=== PATIENT | female | born 1950 | race Caucasian/White ===

== ENCOUNTER 2017-12-26 17:47 | Observation (INO) ==
--- NOTE | 2017-12-26 18:02 | Emergency Department Note ---
Disposition Clinical Impression: Weakness Altered mental status Qualifiers: Altered mental status type: disorientation Qualified Code(s): R41.0 - Disorientation, unspecified Fall Qualifiers: Encounter type: initial encounter Qualified Code(s): W19.XXXA - Unspecified fall, initial encounter Head contusion Qualifiers: Encounter type: initial encounter Contusion of head detail: scalp Qualified Code(s): S00.03XA - Contusion of scalp, initial encounter Fever Qualifiers: Fever type: unspecified Qualified Code(s): R50.9 - Fever, unspecified Disposition: Admitted As Inpatient Condition: Fair Time of Disposition: 20:16 Fall HPI - General Chief Complaint: ED Altered Mental Status Stated Complaint: AMS Time Seen by Provider: 12/26/17 17:57 Source: patient, EMS Mode of arrival: EMS Limitations: altered mental status Nursing Notes Reviewed: Yes Vital Signs Reviewed: Yes - History of Present Illness HPI Narrative: Patient is a 67-year-old female who presents to air and see ED via EMS with concern for fall. Patient has fallen multiple times over the last several days and twice today. States she had some dizziness and chest pain prior to falling. Denies any difficulty breathing, abdominal pain, problems with urination or bowel movements. Patient does seem a little slow to respond and I am not sure if she understands everything I am asking her. She is able to tell me her name but does not know the year or location. We are waiting her family member to come in. Patient is on daily aspirin. Pt Subjective Complaint: fall Onset (ago): Just THREAD SINGER Fall From: wheelchair Fall Witnessed: yes Place Fall Occurred: home Loss of Consciousness: unsure Prolonged Down Time?: unclear Symptoms Prior to Fall: dizziness Context: history of frequent falls Location of injury: head Associated symptoms (after fall): Reports: chest pain, lightheaded - Related Data Home Medications Medication Instructions Recorded Confirmed Amlodipine Besylate/Benazepril 1 cap PO DAILY 09/09/16 11/25/16 [Lotrel 5-10 mg Capsule] Aspirin 81 mg PO DAILY 09/09/16 11/25/16 BuPROPion SR (12 HR) [Wellbutrin 150 mg PO BID 09/09/16 11/25/16 SR] Carbidopa/Levodopa 25/100 [Sinemet 1 tab PO QID 09/09/16 11/25/16 25/100] Gabapentin [Neurontin] 100 mg PO TID 09/09/16 11/25/16 Gabapentin [Neurontin] 600 mg PO TID 09/09/16 11/25/16 LORazepam [Ativan] 0.5 mg PO TID PRN 09/09/16 11/25/16 Loperamide [Imodium] 2 mg PO 8XD PRN 09/09/16 11/25/16 Omeprazole [PriLOSEC] 40 mg PO DAILY 09/09/16 11/25/16 Ondansetron HCl [Zofran] 4 mg PO Q6H PRN 09/09/16 11/25/16 Oxycodone HCl [Oxycontin] 40 mg PO Q6H 09/09/16 11/25/16 Prochlorperazine Maleate 10 mg PO Q8HR PRN 09/09/16 11/25/16 [Compazine] Promethazine HCl 12.5 mg PO Q6H PRN 09/09/16 11/25/16 Sertraline [Zoloft] 100 mg PO DAILY 09/09/16 11/25/16 Simvastatin [Zocor] 20 mg PO HS 09/09/16 11/25/16 Previous Rx's Medication Instructions Recorded Ibuprofen [Motrin] 600 mg PO Q8HR PRN #15 tab 10/30/16 Allergies Allergy/AdvReac Type Severity Reaction Status Date / Time No Known Allergies Allergy Verified 12/26/17 17:59 Limitations: ROS unobtainable due to patients medical condition Fall PMH - Past Medical History Medical history: Reports: hypertension Surgical history: Reports: cholecystectomy Psychiatric history: Reports: depression - Social History Smoking Status: 2nd Hand Smoke Exposure Alcohol use: Reports: none Drug use: Reports: none Physical Exam - General Limitations: altered mental status General appearance: alert - Head Head exam: other (Frontal contusion to the left forehead) - Eye Eye exam: Present: PERRL, EOMI - ENT ENT exam: normal exam, normal oropharynx, mucous membranes moist - Neck Neck exam: Present: normal inspection, full ROM, trachea midline - Chest Chest inspection: Present: normal inspection, symmetric chest wall rise - Respiratory Respiratory exam: Present: normal lung sounds bilaterally - Cardiovascular Cardiovascular exam: Present: regular rate, normal rhythm, normal heart sounds - Abdominal Exam Abdominal exam: Present: soft, Non-Tender. Absent: tenderness, distention, guarding, rebound, rigidity - Extremities Exam Extremities exam: Present: normal inspection, full ROM. Absent: tenderness, pedal edema - Neurological Exam Neurological exam: Present: alert. Absent: motor sensory deficit - Expanded Neurological Exam Patient oriented to: Present: person Coma Scale Eye Opening: Spontaneous Coma Scale Motor Response: Obeys Commands Coma Scale Verbal Response: Confused Coma Scale Total: 14 - Psychiatric Psychiatric exam: Present: normal affect, normal mood - Skin Skin exam: Present: warm, dry, intact, normal color Course Course Narrative: Patient seen and examined. Multiple falls. Does have a head contusion. Due to her altered mentation and fall injury, concern for possible intracranial injury. ET of the head ordered. We will also get a CT C/T/L spine with this as well as CT chest, abdomen and pelvis to evaluate for signs of injury or infection. Patient does have a temperature here of 102. We will initiate antibiotics bank and Zosyn. Altered mental status workup initiated. - Reevaluation(s) Reevaluation #1: Patient's lab work is appears unremarkable. As of now, the fever is of an unknown source. Blood cultures were also ordered. We will admit for concern for the multiple falls her generalized weakness and fever of unknown source. I discussed with the hospitalist who has accepted patient for admission. Upon the patient getting admitted, was found that patient is on [facility]. It turns out that hospice was the one who actually called EMS to begin with. We did discuss with the patient and family members of the possibility that if patient gets admitted, she may have to reapply for hospice. They understand and would still like her to be admitted. Time: 20:15 Vital Signs O2 Sat by Pulse Oximetry 95 12/26/17 18:07 Temperature 99.8 F H 12/26/17 21:24 Pulse Rate 63 12/26/17 21:24 Respiratory Rate 16 12/26/17 21:24 Blood Pressure 134/53 12/26/17 21:24 O2 Sat by Pulse Oximetry 95 12/26/17 21:24 Oxygen Delivery Oxygen Delivery Room Air Fall - Medical Records Medical records reviewed: Yes I reviewed the patient's medical records. - Lab Data Lab results reviewed: Yes I reviewed the patient's lab results. Result diagrams: 12/26/17 19:01 12/26/17 19:01 Lab Results 12/26/17 12/26/17 12/26/17 Range/Units 18:29 18:29 19:01 WBC 8.1 (4.3-11.1) K/mcL RBC 3.59 L (3.82-4.97) M/mcL Hgb 9.9 L (11.5-15.4) g/dL Hct 30.3 L (35.3-44.9) % MCV 84.4 (83.0-100.0) fL MCH 27.6 L (28.0-33.3) pg MCHC 32.7 (31.6-35.5) g/dL RDW 13.8 (11.5-14.5) % Plt Count 106 L (140-400) K/mcL MPV 10.0 (9.4-12.4) fL Immature Gran % 0.4 (0-4) % Seg Neutrophils % 79.9 % Lymphocytes % 9.1 % Monocytes % 9.8 % Eosinophils % 0.7 % Basophils % 0.1 % Neutrophils # 6.5 (1.6-8.9) K/mcL Lymphocytes # 0.7 (0.6-4.6) K/mcL Monocytes # 0.8 (0.0-1.3) K/mcL Eosinophils # 0.1 (0.0-0.6) K/mcL Basophils # 0.0 (0.0-0.2) K/mcL PT (9.4-12.1) Seconds INR APTT (26.0-36.0) Seconds Sodium (136-145) mEq/L Potassium (3.5-5.1) mEq/L Chloride (98-107) mEq/L Carbon Dioxide (23-29) mEq/L BUN (8-23) mg/dL Creatinine (0.60-1.20) mg/dL Est GFR ( Amer) (> 60) Est GFR (Non-Af Amer) (> 60) BUN/Creatinine Ratio (6-26) Glucose (70-105) mg/dL Calculated Osmolality (280-300) Lactic Acid (0.5-2.2) mmol/L Calcium (8.6-10.3) mg/dL Total Bilirubin (0.3-1.0) mg/dL Direct Bilirubin (0.0-0.2) mg/dL Indirect Bilirubin (0.0-1.2) mg/dL AST (13-39) Units/L ALT (7-52) Units/L Alkaline Phosphatase (34-104) Units/L Ammonia (16-53) mcmol/L Creatine Kinase (30-223) Units/L Troponin I (< 0.04) ng/mL Serum Total Protein (6.4-8.9) g/dL Albumin (3.5-5.7) g/dL Globulin (2.4-3.5) g/dL Albumin/Globulin Ratio (1.1-2.2) Urine Color Yellow (Yellow) Urine Clarity Clear (Clear) Urine pH 6.0 (5.0-8.0) pH Units Ur Specific [place] 1.020 (1.010-1.025) Urine Protein 30 H (Neg-Trace) mg/dL Urine Glucose (UA) Normal (Normal) mg/dL Urine Ketones Negative (Negative) mg/dL Urine Blood Negative (Negative) Urine Nitrite Negative (Negative) Urine Bilirubin Negative (Negative) Urine Urobilinogen Normal (Normal) mg/dL Ur Leukocyte Esterase Negative (Negative) Urine Microscopic RBC 0-3 (0-3) per hpf Urine Microscopic WBC 0-3 (0-3) per hpf Ur Squamous Epith Cells Many H (None-Few) per lpf Urine Bacteria Moderate H (None-Few) per hpf Hyaline Casts None Seen (None-Few) per lpf Ur Culture Indicated? NO (NO) Urine Opiates Screen Positive H (Rqxujw=481) ng/mL Ur Barbiturates Screen Negative (Vuhetb=743) ng/mL Ur Phencyclidine Scrn Negative (Cutoff=25) ng/mL Ur Amphetamines Screen Negative (Jyrjkh=5450) ng/mL U Benzodiazepines Scrn Negative (Fwvixw=468) ng/mL Urine Cocaine Screen Negative (Cutoff= 300) ng/mL U Marijuana (THC) Screen Negative (Cutoff = 50) ng/mL Ur Drug Screen Interp See Below Ethyl Alcohol (Less than 10) mg/dL 12/26/17 12/26/17 12/26/17 Range/Units 19:01 19:01 19:01 WBC (4.3-11.1) K/mcL RBC (3.82-4.97) M/mcL Hgb (11.5-15.4) g/dL Hct (35.3-44.9) % MCV (83.0-100.0) fL MCH (28.0-33.3) pg MCHC (31.6-35.5) g/dL RDW (11.5-14.5) % Plt Count (140-400) K/mcL MPV (9.4-12.4) fL Immature Gran % (0-4) % Seg Neutrophils % % Lymphocytes % % Monocytes % % Eosinophils % % Basophils % % Neutrophils # (1.6-8.9) K/mcL Lymphocytes # (0.6-4.6) K/mcL Monocytes # (0.0-1.3) K/mcL Eosinophils # (0.0-0.6) K/mcL Basophils # (0.0-0.2) K/mcL PT 13.3 H (9.4-12.1) Seconds INR 1.2 APTT 30.2 (26.0-36.0) Seconds Sodium 131 L (136-145) mEq/L Potassium 3.9 (3.5-5.1) mEq/L Chloride 99 (98-107) mEq/L Carbon Dioxide 24 (23-29) mEq/L BUN 28 H (8-23) mg/dL Creatinine 1.06 (0.60-1.20) mg/dL Est GFR ( Amer) > 60 (> 60) Est GFR (Non-Af Amer) 51 L (> 60) BUN/Creatinine Ratio 26 (6-26) Glucose 89 (70-105) mg/dL Calculated Osmolality 277 L (280-300) Lactic Acid (0.5-2.2) mmol/L Calcium 8.3 L (8.6-10.3) mg/dL Total Bilirubin 0.6 (0.3-1.0) mg/dL Direct Bilirubin 0.2 (0.0-0.2) mg/dL Indirect Bilirubin 0.4 (0.0-1.2) mg/dL AST 49 H (13-39) Units/L ALT 10 (7-52) Units/L Alkaline Phosphatase 118 H (34-104) Units/L Ammonia 34 (16-53) mcmol/L Creatine Kinase 161 (30-223) Units/L Troponin I < 0.03 (< 0.04) ng/mL Serum Total Protein 6.5 (6.4-8.9) g/dL Albumin 3.6 (3.5-5.7) g/dL Globulin 2.9 (2.4-3.5) g/dL Albumin/Globulin Ratio 1.2 (1.1-2.2) Urine Color (Yellow) Urine Clarity (Clear) Urine pH (5.0-8.0) pH Units Ur Specific [place] (1.010-1.025) Urine Protein (Neg-Trace) mg/dL Urine Glucose (UA) (Normal) mg/dL Urine Ketones (Negative) mg/dL Urine Blood (Negative) Urine Nitrite (Negative) Urine Bilirubin (Negative) Urine Urobilinogen (Normal) mg/dL Ur Leukocyte Esterase (Negative) Urine Microscopic RBC (0-3) per hpf Urine Microscopic WBC (0-3) per hpf Ur Squamous Epith Cells (None-Few) per lpf Urine Bacteria (None-Few) per hpf Hyaline Casts (None-Few) per lpf Ur Culture Indicated? (NO) Urine Opiates Screen (Txwher=913) ng/mL Ur Barbiturates Screen (Wygelt=823) ng/mL Ur Phencyclidine Scrn (Cutoff=25) ng/mL Ur Amphetamines Screen (Doctpc=0991) ng/mL U Benzodiazepines Scrn (Xvkcff=666) ng/mL Urine Cocaine Screen (Cutoff= 300) ng/mL U Marijuana (THC) Screen (Cutoff = 50) ng/mL Ur Drug Screen Interp Ethyl Alcohol 11 H (Less than 10) mg/dL 12/26/17 Range/Units 19:01 WBC (4.3-11.1) K/mcL RBC (3.82-4.97) M/mcL Hgb (11.5-15.4) g/dL Hct (35.3-44.9) % MCV (83.0-100.0) fL MCH (28.0-33.3) pg MCHC (31.6-35.5) g/dL RDW (11.5-14.5) % Plt Count (140-400) K/mcL MPV (9.4-12.4) fL Immature Gran % (0-4) % Seg Neutrophils % % Lymphocytes % % Monocytes % % Eosinophils % % Basophils % % Neutrophils # (1.6-8.9) K/mcL Lymphocytes # (0.6-4.6) K/mcL Monocytes # (0.0-1.3) K/mcL Eosinophils # (0.0-0.6) K/mcL Basophils # (0.0-0.2) K/mcL PT (9.4-12.1) Seconds INR APTT (26.0-36.0) Seconds Sodium (136-145) mEq/L Potassium (3.5-5.1) mEq/L Chloride (98-107) mEq/L Carbon Dioxide (23-29) mEq/L BUN (8-23) mg/dL Creatinine (0.60-1.20) mg/dL Est GFR ( Amer) (> 60) Est GFR (Non-Af Amer) (> 60) BUN/Creatinine Ratio (6-26) Glucose (70-105) mg/dL Calculated Osmolality (280-300) Lactic Acid 0.6 (0.5-2.2) mmol/L Calcium (8.6-10.3) mg/dL Total Bilirubin (0.3-1.0) mg/dL Direct Bilirubin (0.0-0.2) mg/dL Indirect Bilirubin (0.0-1.2) mg/dL AST (13-39) Units/L ALT (7-52) Units/L Alkaline Phosphatase (34-104) Units/L Ammonia (16-53) mcmol/L Creatine Kinase (30-223) Units/L Troponin I (< 0.04) ng/mL Serum Total Protein (6.4-8.9) g/dL Albumin (3.5-5.7) g/dL Globulin (2.4-3.5) g/dL Albumin/Globulin Ratio (1.1-2.2) Urine Color (Yellow) Urine Clarity (Clear) Urine pH (5.0-8.0) pH Units Ur Specific [place] (1.010-1.025) Urine Protein (Neg-Trace) mg/dL Urine Glucose (UA) (Normal) mg/dL Urine Ketones (Negative) mg/dL Urine Blood (Negative) Urine Nitrite (Negative) Urine Bilirubin (Negative) Urine Urobilinogen (Normal) mg/dL Ur Leukocyte Esterase (Negative) Urine Microscopic RBC (0-3) per hpf Urine Microscopic WBC (0-3) per hpf Ur Squamous Epith Cells (None-Few) per lpf Urine Bacteria (None-Few) per hpf Hyaline Casts (None-Few) per lpf Ur Culture Indicated? (NO) Urine Opiates Screen (Mjcmgj=517) ng/mL Ur Barbiturates Screen (Uaycek=145) ng/mL Ur Phencyclidine Scrn (Cutoff=25) ng/mL Ur Amphetamines Screen (Ukmhba=4385) ng/mL U Benzodiazepines Scrn (Qopcje=112) ng/mL Urine Cocaine Screen (Cutoff= 300) ng/mL U Marijuana (THC) Screen (Cutoff = 50) ng/mL Ur Drug Screen Interp Ethyl Alcohol (Less than 10) mg/dL - Radiology Data Radiology results reviewed: Yes I reviewed the patient's radiology results. Abdomen/Pelvis CT 12/26/17 17:57 IMPRESSION: Suspected nondisplaced acute fractures of the right 3rd through 5th ribs anteriorly. Otherwise, no acute abnormalities are seen within the chest with significant limitations as described above. Redemonstration of lung nodules. These are not nearly as well visualized on the current examination. Please refer to the follow-up recommendations for the previous exam. No acute abnormalities are identified within the abdomen pelvis, again with limitations as described above. D/ / Valerio Pritchard MD / Valerio Pritchard MD Interpreting Provider: Valerio Pritchard MD Cervical Spine CT 12/26/17 17:57 IMPRESSION: No acute abnormality of the cervical spine. D/ / Jesús Meng MD / Jesús Meng MD Interpreting Provider: Jesús Meng MD Chest CT 12/26/17 17:57 IMPRESSION: Suspected nondisplaced acute fractures of the right 3rd through 5th ribs anteriorly. Otherwise, no acute abnormalities are seen within the chest with significant limitations as described above. Redemonstration of lung nodules. These are not nearly as well visualized on the current examination. Please refer to the follow-up recommendations for the previous exam. No acute abnormalities are identified within the abdomen pelvis, again with limitations as described above. D/ / Valerio Pritchard MD / Valerio Pritchard MD Interpreting Provider: Valerio Pritchard MD Head CT 12/26/17 17:57 IMPRESSION: No acute intracranial abnormality. D/ / Jesús Meng MD / Jesús Meng MD Interpreting Provider: Jesús Meng MD Chest X-Ray 12/26/17 17:58 IMPRESSION: Cardiac silhouette enlargement and central vascular congestion. D/ / 12/26/2017 18:52:23 Dusty Ureña MD / [email or web address] Interpreting Provider: Dusty Ureña MD Lumbar Spine CT 12/26/17 18:18 IMPRESSION: Multiple endplate Schmorl's node deformities in the lumbar spine. There is no acute fracture. D/ / Rudy Guzmán / Rudy Guzmán Interpreting Provider: Rudy Guzmán Thoracic Spine CT 12/26/17 18:18 IMPRESSION: No acute thoracic spine abnormality. D/ / Paul Anaya MD / Paul Anaya MD Interpreting Provider: Paul Anaya MD - EKG Data EKG attestation: Yes I reviewed and interpreted this EKG. Attestation Statement - Attestation Attestation: I examined this patient and my medical decision-making was reviewed with the Resident Physician. I agree with the documented findings, disposition and treatment plan as described except to the extent set forth below. Findings consistent with altered mental status in the setting of fall. She did have trauma imaging that shows evidence of rib fracture without evidence of pneumothorax. She has a polypharmacy as well as underlying altered mental status. She is febrile. There is no evidence of clonus. I do not suspect malignant hyperthermia from neuroleptic agents. The patient will be admitted for further management of possible infection in the setting of altered mental status and fall. I spent greater than 35 minutes of critical care time resuscitating this acutely ill patient suffering from altered mental status and fall. This was excluding billable procedures.
[2017-12-26] MEDS ORDERED: Piperacillin/Tazobactam 3.375 GM in 0.9 % Sodium Chloride Mini Bag 100 ML IVPB ONE (18:37)
[2017-12-26 18:38] LABS: Bilirubin,Urine Negative (Negative); Blood,Urine Negative (Negative); Clarity,Urine Clear (Clear); Color,Urine Yellow (Yellow); Glucose,Urine (UA) Normal (Normal); Ketones,Urine Negative (Negative); Leukocyte Esterase,Urine Negative (Negative); Nitrite,Urine Negative (Negative); Protein,Urine 30 mg/dL (Neg-Trace); Urobilinogen,Urine Normal (Normal)
[2017-12-26 18:40] LABS: Bacteria,Urine Moderate per hpf (None-Few); Hyaline Casts,Urine None Seen per lpf (None-Few); RBC,Urine 0-3 per hpf (0-3); Squamous Epithelial Cell,Urine Many per lpf (None-Few); WBC,Urine 0-3 per hpf (0-3)
[2017-12-26 18:48] LABS: Amphetamine Screen,Urine Negative ng/mL (Cutoff=1000); Barbiturate Screen,Urine Negative ng/mL (Cutoff=200); Benzodiazepines Screen,Urine Negative ng/mL (Cutoff=200); Cannabinoid Screen,Urine Negative ng/mL (Cutoff = 50); Cocaine Screen,Urine Negative ng/mL (Cutoff= 300); Opiate Screen,Urine Positive ng/mL (Cutoff=300); Phencyclidine Screen,Urine Negative ng/mL (Cutoff=25)
[2017-12-26 19:12] LABS: Basophils % 0.1 %; Eosinophils # 0.1 K/mcL (0.0-0.6); Eosinophils % 0.7 %; Hematocrit 30.3 % (35.3-44.9); Hemoglobin 9.9 g/dL (11.5-15.4); Immature Granulocytes % 0.4 % (0-4); Lymphocytes # 0.7 K/mcL (0.6-4.6); Lymphocytes % 9.1 %; Mean Corpuscular HGB Conc 32.7 g/dL (31.6-35.5); Mean Corpuscular Hemoglobin 27.6 pg (28.0-33.3); Mean Corpuscular Volume 84.4 fL (83.0-100.0); Monocytes # 0.8 K/mcL (0.0-1.3); Monocytes % 9.8 %; Neutrophils # 6.5 K/mcL (1.6-8.9); Platelet Count 106 K/mcL (140-400); Red Blood Count 3.59 M/mcL (3.82-4.97); Red Cell Distribution Width 13.8 % (11.5-14.5); Segmented Neutrophils % 79.9 %
[2017-12-26 19:15] LABS: INR 1.2; Prothrombin Time 13.3 Seconds (9.4-12.1)
[2017-12-26 19:18] LABS: Activated Partial Thrombo Time 30.2 Seconds (26.0-36.0)
[2017-12-26 19:33] LABS: Troponin I < 0.03 ng/mL (< 0.04)
[2017-12-26 19:34] LABS: Alanine Aminotransferase 10 Units/L (7-52); Albumin 3.6 g/dL (3.5-5.7); Albumin/Globulin Ratio 1.2 (1.1-2.2); Alkaline Phosphatase 118 Units/L (34-104); Aspartate Amino Transferase 49 Units/L (13-39); BUN/Creatinine Ratio 26 (6-26); Bilirubin,Direct 0.2 mg/dL (0.0-0.2); Bilirubin,Indirect 0.4 mg/dL (0.0-1.2); Bilirubin,Total 0.6 mg/dL (0.3-1.0); Blood Urea Nitrogen 28 mg/dL (8-23); Calcium 8.3 mg/dL (8.6-10.3); Carbon Dioxide 24 mEq/L (23-29); Chloride 99 mEq/L (98-107); Creatine Kinase 161 Units/L (30-223); Ethanol 11 mg/dL (Less than 10); Globulin 2.9 g/dL (2.4-3.5); Glucose 89 mg/dL (70-105); Osmolality,Calculated 277 (280-300); Potassium 3.9 mEq/L (3.5-5.1); Sodium 131 mEq/L (136-145); Total Protein 6.5 g/dL (6.4-8.9); eGFR For Non-African Americans 51 (> 60)
[2017-12-26] MEDS ORDERED: Acetaminophen 650 MG RECTAL SUPP RC ONE (19:44)
[2017-12-26] MEDS ORDERED: 0.9 % Sodium Chloride 1,000 ML IVC ONE (20:00)
[2017-12-26] MEDS ORDERED: Naloxone 0.4 MG/ML INJ IVP PRN (21:06)
--- NOTE | 2017-12-26 21:18 | Internal Med History&Physical ---
<Goran Garcia - Last Filed: 12/26/17 21:12> Date of Encounter: 12/26/17 Time of Encounter: 21:12 Internal Medicine - H&P: HPI Chief complaint: fall Admitted From: Home Plans for Post Hospital Care: Home History of present illness: Ms. Covarrubias is a 67 year old female presents ini EMS after falling. Patient was sitting on the cough and tried to get up on her own without assistance and fell forward. Patient reports dizziness. Patient was found by her [facility] hospice aid to be on the ground and EMS was called by them. Patient had a left forehead cut and bruise. In the past year patient has had multiple falls and has been evaluated in the ED but not requiring admission. Imaging done in the ER included : Thoracic spine Ct, lumbar spine CT, chest x-ray, CT head, CT chest, cervical spine CT and abdominal pelvis CT. Patient has acute fractures of right third and fifth ribs anteriorly, nondisplaced. All other imaging was normal. She denies chest pain, sob, abdominal pain. Past Med Surg Social Fam HX - Past Medical History Medical history: hypertension Additional medical history: Parkinson's Psychiatric history: depression - Past Surgical History Surgical History: cholecystectomy - Social History Smoking Status: 2nd Hand Smoke Exposure Smokeless Tobacco Status: No Alcohol use: none Drug use: none Internal Medicine - H&P: Meds Amlodipine Besylate/Benazepril [Lotrel 5-10 mg Capsule] 1 cap PO DAILY 09/09/16 [History] Aspirin 81 mg PO DAILY 09/09/16 [History] BuPROPion SR (12 HR) [Wellbutrin SR] 150 mg PO BID 09/09/16 [History] Carbidopa/Levodopa 25/100 [Sinemet 25/100] 1 tab PO QID 09/09/16 [History] Gabapentin [Neurontin] 100 mg PO TID 09/09/16 [History] Gabapentin [Neurontin] 600 mg PO TID 09/09/16 [History] LORazepam [Ativan] 0.5 mg PO TID PRN 09/09/16 [History] Loperamide [Imodium] 2 mg PO 8XD PRN 09/09/16 [History] Omeprazole [PriLOSEC] 40 mg PO DAILY 09/09/16 [History] Ondansetron HCl [Zofran] 4 mg PO Q6H PRN 09/09/16 [History] Oxycodone HCl [Oxycontin] 40 mg PO Q6H 09/09/16 [History] Prochlorperazine Maleate [Compazine] 10 mg PO Q8HR PRN 09/09/16 [History] Promethazine HCl 12.5 mg PO Q6H PRN 09/09/16 [History] Sertraline [Zoloft] 100 mg PO DAILY 09/09/16 [History] Simvastatin [Zocor] 20 mg PO HS 09/09/16 [History] Ibuprofen [Motrin] 600 mg PO Q8HR PRN #15 tab 10/30/16 [Rx] 3 Allergy/AdvReac Type Severity Reaction Status Date / Time No Known Allergies Allergy Verified 12/26/17 17:59 All Systems PM: A 10-system review of systems was performed and is negative for pertinent findings except as documented above in the HPI. Review of systems: Constitutional: Denies fever, chills HEENT: Denies headache, blurry vision, eye discharge, ear pain, ear discharge neck pain, sore throat, rhinorrhea. Reports trauma Heart: Denies chest pain palpitations, LE edema Lungs: Denies shortness of breath cough Abdomen: Denies abdominal pain nausea vomiting diarrhea MSK: Denies back pain, reports falls Kidney: Denies dysuria, hematuria Skin: Denies rash, ulcers Neuro: Denies numbness and tingling Psych: denies axniety, depression - Constitutional Vitals: Temp Pulse Resp BP Pulse Ox 101.3 F H 70 16 141/74 95 12/26/17 18:08 12/26/17 20:26 12/26/17 20:26 12/26/17 20:26 12/26/17 20:26 Exam: General: pleasant, without distress HEENT: Left forehead bruising, 0.5 centimeter laceration. EOMI, PERRL, absent ear discharge or trauma, Moist Mucous Membranes, uvula midline Neck: nontender to palpation, absent lymphadenopathy, Cardiovascualr: Regular rate and rhythm with no murmur, absent gallops or rubs, absent pedal edema, radial pulses 2 out of 4 Lungs: Clear to auscultation bilaterally, not in respiratory distress Abdomen: Soft nontender, mild distention positive bowel sounds, absent hepatomegaly Skin: warm and dry, absent rash, absent open wounds and nodules MSK: absent clubbing, cyanosis, joints without swelling Neuro: Cranial nerves II through XII intact, UE and LE sensation equal bilaterally, UE and LEstrength 5/5, alert oriented to t self, place, situation but not to time, Psych: good insight and judgment, Internal Med - H&P Results - Labs CBC & Chem 7: 12/26/17 19:01 12/26/17 19:01 - Assessment and plan (1) Fall Current Visit: Yes Status: Acute Assessment and plan: Patient presented with mechanical fall fell forward while getting up from chair obtained left forehead contusion also has right 3-4 rib non-displaced fractures (no tenderness to palpation) hx of parkinsions disease patient received Oxycodone HCL 10mg tablets (168 tablets/14 day supply) by [facility] as per EMR UDS positive for opiates Plan: PT/OT. continue sinemet Qualifiers: Encounter type: subsequent encounter Qualified Code(s): W19.XXXD - Unspecified fall, subsequent encounter (2) Fever Current Visit: Yes Status: Acute Assessment and plan: patient had fever of 101.[address] abdomen/pelvis, chest negative for infection wbc WNL, HR <100 patient is tacypenic urinalysis negative for infection patient denies cough skin exam does not show signs of infection lactic acid 0.6 She was given Vanc and zosyn in ED Plan: await culture results and we will montior patient for further signs of infection. Qualifiers: Fever type: unspecified Qualified Code(s): R50.9 - Fever, unspecified (3) Cirrhosis Current Visit: Yes Status: Acute Assessment and plan: unspecified cirrhosis follows Dr. Leiva Abd exam normal, no fluid wave AST elevated at 49. ALT normal INR 1.2 platelet 106 plan: continue to monitor, follow up with GI Qualifiers: Hepatic cirrhosis type: unspecified hepatic cirrhosis Ascites presence: without ascites Qualified Code(s): K74.60 - Unspecified cirrhosis of liver (4) Rib fractures Current Visit: Yes Status: Acute Assessment and plan: pain control with tylenol and nsaids. Qualifiers: Encounter type: initial encounter Rib fracture type: multiple ribs Fracture type: closed Laterality: right Qualified Code(s): S22.41XA - Multiple fractures of ribs, right side, initial encounter for closed fracture (5) Parkinsons disease Current Visit: Yes Status: Acute Assessment and plan: controlled continue sinemet (6) Altered mental status Current Visit: Yes Status: Ruled-out Assessment and plan: patient was alert to self, situation, place but not time this is baseline for her. She remembers having the fall Qualifiers: Altered mental status type: unspecified Qualified Code(s): R41.82 - Altered mental status, unspecified (7) Head contusion Current Visit: Yes Status: Acute Assessment and plan: left fore head contusion CT head negative pain control. Qualifiers: Encounter type: initial encounter Contusion of head detail: scalp Qualified Code(s): S00.03XA - Contusion of scalp, initial encounter (8) Hospice care patient Current Visit: Yes Status: Acute Assessment and plan: hospice patient for 2 years for parkinsons disease at [facility] hospice aid found patient fallen and called EMS. family friend's mother works at [facility] and who told them hospice will be revoked when being admitted but will be reinstated upon discharge. - Time Spent With Patient Total time spent is greater than 50% in coordination of care (as documented) at patient's floor/unit and/or counseling patient: <Dusty Dalton - Last Filed: 12/26/17 21:47> Date of Encounter: 12/26/17 Internal Medicine - H&P: HPI History of present illness: Ms. Covarrubias is a 67 year old female All Systems PM: A 10-system review of systems was performed and is negative for pertinent findings except as documented above in the HPI. - Constitutional Vitals: Temp Pulse Resp BP Pulse Ox 99.8 F H 63 16 134/53 95 12/26/17 21:24 12/26/17 21:24 12/26/17 21:24 12/26/17 21:24 12/26/17 21:24 Internal Med - H&P Results - Labs CBC & Chem 7: 12/26/17 19:01 12/26/17 19:01 - Assessment and plan (1) Altered mental status Current Visit: Yes Status: Ruled-out Qualifiers: Altered mental status type: unspecified Qualified Code(s): R41.82 - Altered mental status, unspecified (2) Fall Current Visit: Yes Status: Acute Qualifiers: Encounter type: subsequent encounter Qualified Code(s): W19.XXXD - Unspecified fall, subsequent encounter (3) Head contusion Current Visit: Yes Status: Acute Qualifiers: Encounter type: initial encounter Contusion of head detail: scalp Qualified Code(s): S00.03XA - Contusion of scalp, initial encounter (4) Fever Current Visit: Yes Status: Acute Qualifiers: Fever type: unspecified Qualified Code(s): R50.9 - Fever, unspecified (5) Cirrhosis Current Visit: Yes Status: Acute Qualifiers: Hepatic cirrhosis type: unspecified hepatic cirrhosis Ascites presence: without ascites Qualified Code(s): K74.60 - Unspecified cirrhosis of liver (6) Rib fractures Current Visit: Yes Status: Acute Qualifiers: Encounter type: initial encounter Rib fracture type: multiple ribs Fracture type: closed Laterality: right Qualified Code(s): S22.41XA - Multiple fractures of ribs, right side, initial encounter for closed fracture (7) Parkinsons disease Current Visit: Yes Status: Acute (8) Hospice care patient Current Visit: Yes Status: Acute - Time Spent With Patient Total time spent is greater than 50% in coordination of care (as documented) at patient's floor/unit and/or counseling patient: - Attending Attestation Keli Covarrubias is a 67 year old woman who carries the diagnosis of Parkinsons disease and liver cirrhosis of unclear etiology (alcohol use denied ) who as per documentation and information obtained from is on home hospice, brought in by EMS today as requested by her hospice provider ([facility] ) after suffering a traumatic fall. She tells me she was sitting on a chair and all of a sudden found herself on the floor with paramedics around. On chart review it is seen she has visited the ER on multiple occasions for falling. On arrival she was hemodynamically stable. There was a documented fever of 101.3F and was given vancomycin and pip/tazo although there were no localizing signs of infection present. She complains of some mid abdominal discomfort that has been longstanding. She denies headache, dizziness, chest pain, dyspnea, cough, expectoration and dysuria. Physical exam remarkable for obese white woman, oriented to person and place. Pale skin but moist mucous membranes. Bruise on left forehead. No wheezing, rales or rhonchi on auscultation. No heart murmurs. Distended abdomen that was soft and non-tender to palpation. No peripheral edema. 3-4/5 lower extremity strength bilaterally. No cogwheel rigidity or parkinsonian tremor noted. No tenderness on palpation of chest wall. Labs remarkable for NA 131 and Hgb 9.9. Alcohol level 11. Imaging studies reviewed independently by me. CT reports suggest nondisplaced fractures of the right 3-5th ribs anteriorly. X-ray however shows old left- sided rib fractures. Will admit for recurrent falls, likely due to instability. Will check EKG and keep on telemetry to ensure it was no arrhythmic in origin. Will benefit from PT evaluation as it appears most of her falls have to do with gait instability. The family is aware that hospice is revoked with admission however prefer to be admitted and have it restituted upon discharge. Heparin subQ for dvt prophylaxis and home meds to be resumed. Alcohol level of 11 possibly secondary to chloraprep swab used on skin prior to blood draw if indeed she is not a drinker as stated now and in that past visits with GI for cirrhosis however it is not certain. Her AST is 49. Fever remains of unclear etiology; thus far no signs of skin/soft tissue infection, UTI, pneumonia or [employer] infection. Will not continue antimicrobials but rather just observe how she does. Abx can always be started if needed but for now, no. Give IV NS for possible hypovolemic hyponatremia and recheck BMP in the morning. Anemia appears chronic and stable.
[2017-12-26] MEDS ORDERED: Acetaminophen 325 MG TABLET PO PRN (21:38)
[2017-12-26] MEDS: *HR* Heparin 5,000 UNIT/ML VIAL SQ SCH (23:10)
[2017-12-27] MEDS: *HR* Heparin 5,000 UNIT/ML VIAL SQ SCH ×3 (05:44→22:04)
[2017-12-27 08:13] LABS: Eosinophils # 0.1 K/mcL (0.0-0.6); Eosinophils % 1.7 %; Hemoglobin 9.7 g/dL (11.5-15.4); Immature Granulocytes % 0.6 % (0-4); Lymphocytes # 0.7 K/mcL (0.6-4.6); Mean Corpuscular HGB Conc 32.3 g/dL (31.6-35.5); Mean Corpuscular Hemoglobin 27.5 pg (28.0-33.3); Mean Platelet Volume 10.3 fL (9.4-12.4); Monocytes # 0.3 K/mcL (0.0-1.3); Monocytes % 9.1 %; Neutrophils # 2.5 K/mcL (1.6-8.9); Nucleated Red Blood Cells 0.8 /100 WBC (0); Platelet Count 105 K/mcL (140-400); Red Blood Count 3.53 M/mcL (3.82-4.97); Red Cell Distribution Width 14.1 % (11.5-14.5); Segmented Neutrophils % 69.6 %
[2017-12-27 09:31] LABS: BUN/Creatinine Ratio 24 (6-26); Blood Urea Nitrogen 23 mg/dL (8-23); Calcium 8.8 mg/dL (8.6-10.3); Carbon Dioxide 26 mEq/L (23-29); Chloride 109 mEq/L (98-107); Glucose 86 mg/dL (70-105); Osmolality,Calculated 297 (280-300); Potassium 3.9 mEq/L (3.5-5.1); Sodium 142 mEq/L (136-145); eGFR For Non-African Americans 59 (> 60)
--- NOTE | 2017-12-27 09:35 | Internal Med Progress Note ---
<Dusty Purcell - Last Filed: 12/27/17 09:30> Hospitalist Progress Note - Encounter Date of Encounter: 12/27/17 Time of Encounter: 09:30 - Subjective Interval History: Patient seen and examined this morning, no acute events overnight Patient was admitted secondary to multiple mechanical falls Patient denies any chest pain, shortness of breath, abdominal pain, musculoskeletal pain, headache this morning - Exam Vitals: Temp Pulse Resp BP Pulse Ox 98.1 F 56 17 167/69 96 12/27/17 06:34 12/27/17 06:34 12/27/17 06:34 12/27/17 06:34 12/27/17 06:34 Exam: Patient in no acute distress, alert and oriented 3 There is a contusion and wound to the left forehead, no active bleeding Cranial nerves II through XII intact, all 4 extremities 5 out of 5 motor Heart in regular rate and rhythm without murmur or gallop Lungs clear to auscultation bilaterally without wheeze or rales Anterior chest wall is nontender to palpation Abdomen soft and nontender with normal bowel sounds Bilateral lower extremities are not edematous Skin is warm and dry - Assessment and Plan (1) Altered mental status Current Visit: Yes Status: Acute Assessment and Plan: Patient was alert and oriented 2 at admission and remembered falling This appears to be her baseline according to family Fall was likely mechanical and unrelated to mental status Patient alert and oriented 3 on my exam this morning Plan Patient does not currently appear altered and states she wants to go home We will allow PT/OT to evaluate prior to considering discharge We will continue to monitor mental status (2) Fall Current Visit: Yes Status: Acute Assessment and Plan: Patient presented with mechanical fall, fell forward while getting up from chair Obtained left forehead contusion, also has right 3-4 rib non-displaced fractures (no tenderness to palpation) hx of parkinsions disease, UDS positive for opiates patient received Oxycodone HCL 10mg tablets (168 tablets/14 day supply) by [facility] as per EMR Plan: PT/OT. continue sinemet (3) Head contusion Current Visit: Yes Status: Acute Assessment and Plan: left fore head contusion CT head negative pain control. (4) Fever Current Visit: Yes Status: Acute Assessment and Plan: patient had fever of 101.3, currently afebrile WBC within normal limits Ct abdomen/pelvis, chest negative for infection patient was tachycardic, currently normal rate urinalysis negative for infection patient denies cough skin exam does not show signs of infection lactic acid 0.6 She was given Vanc and zosyn in ED Plan: await culture results and we will montior patient for further signs of infection. (5) Cirrhosis Current Visit: Yes Status: Acute Assessment and Plan: unspecified cirrhosis follows Dr. Cali Alfredo exam normal, no fluid wave AST elevated at 49. ALT normal INR 1.2 platelet 106 plan: continue to monitor, follow up with GI (6) Rib fractures Current Visit: Yes Status: Acute Assessment and Plan: Patient is not tender to palpation pain control with tylenol and nsaids. (7) Parkinsons disease Current Visit: Yes Status: Acute Assessment and Plan: controlled continue sinemet (8) Hospice care patient Current Visit: Yes Status: Acute Assessment and Plan: hospice patient for 2 years for parkinsons disease at [facility] hospice aid found patient fallen and called EMS. family friend's mother works at [facility] and who told them hospice will be revoked when being admitted but will be reinstated upon discharge. DVT Prophylaxis: sub q heparin - Time Spent with Patient Total time spent is greater than 50% in coordination of care (as documented) at patient's floor/unit and/or counseling patient: Internal Medicine: Result - Labs CBC & Chem 7: 12/27/17 07:44 12/26/17 19:01 Labs: Short CBC 12/27/17 Range/Units 07:44 WBC 3.6 L D (4.3-11.1) K/mcL Hgb 9.7 L (11.5-15.4) g/dL Hct 30.0 L (35.3-44.9) % Plt Count 105 L (140-400) K/mcL Neutrophils # 2.5 (1.6-8.9) K/mcL - ABG Interpretation ABG results: PT/INR, D-dimer PT 13.3 Seconds (9.4-12.1) H 12/26/17 19:01 Consult Discharge Plan - Plan Referrals: Marbin Aldrich Jr, MD [Primary Care Provider] - <Jeremy High - Last Filed: 12/27/17 13:36> Hospitalist Progress Note - Encounter Date of Encounter: 12/27/17 - Exam Vitals: Temp Pulse Resp BP Pulse Ox 98.8 F 65 17 161/88 98 12/27/17 11:18 12/27/17 11:18 12/27/17 11:18 12/27/17 13:25 12/27/17 11:18 - Assessment and Plan (1) Altered mental status Current Visit: Yes Status: Acute (2) Fall Current Visit: Yes Status: Acute (3) Head contusion Current Visit: Yes Status: Acute (4) Fever Current Visit: Yes Status: Acute (5) Cirrhosis Current Visit: Yes Status: Acute (6) Rib fractures Current Visit: Yes Status: Acute (7) Parkinsons disease Current Visit: Yes Status: Acute (8) Hospice care patient Current Visit: Yes Status: Acute - Time Spent with Patient Total time spent is greater than 50% in coordination of care (as documented) at patient's floor/unit and/or counseling patient: Internal Medicine: Result - Labs CBC & Chem 7: 12/27/17 07:44 12/27/17 07:44 Labs: Short CBC 12/27/17 Range/Units 07:44 WBC 3.6 L D (4.3-11.1) K/mcL Hgb 9.7 L (11.5-15.4) g/dL Hct 30.0 L (35.3-44.9) % Plt Count 105 L (140-400) K/mcL Neutrophils # 2.5 (1.6-8.9) K/mcL BMP 12/27/17 07:44 Sodium 142 D Potassium 3.9 Chloride 109 H Carbon Dioxide 26 BUN 23 Creatinine 0.94 Glucose 86 Calcium 8.8 - ABG Interpretation ABG results: PT/INR, D-dimer PT 13.3 Seconds (9.4-12.1) H 12/26/17 19:01 - Impressions Impressions Chest CTA 12/27/17 11:08 IMPRESSION: 1. No radiographic findings to suggest presence of pulmonary embolism. 2. Findings consistent with subtle fractures of anterolateral right 3rd through 5th ribs. No evidence of pleural effusion or pneumothorax. D/ / 12/27/2017 12:19:45 Escobar Sapp MD / froylan Interpreting Provider: Escobar Sapp MD - Attending Attestation I examined this patient and my medical decision-making was reviewed with the Resident Physician. I agree with the documented findings, disposition and treatment plan as described except to the extent set forth below. 67 year old female with history of Parkinson's disease presented for fall. Patient did state to staff that she had simple mechanical fall. However, patient did state to me that she passed out, or that she is unsure if she had LOC or not. Physical exam was unremarkable. Vital signs significant for fever of 101.3 F on admission. Sodium borderline low at 131 and is now normal after 1 L of normal saline. Hemoglobin at baseline 9.7, alcohol level is 11. Opiates positive as she is on oxycodone recently prescribed. She takes Sinemet at home. CTA done today to rule out PE and was negative. Urinalysis showed positive for protein and urine bacteria, however it was also positive for squamous epithelial cells. 1. Syncope/Fall 2. Fever 3. Parkinson's disease 4. Hyponatremia - Orthostatic vitals pending. - Possibly UTI, however no other obvious source of infection. Start Rocephin for 3 day course. - PT/OT - Echocardiogram <Dusty Purcell - Last Filed: 12/27/17 09:30> (1) Altered mental status Qualifiers: Altered mental status type: disorientation Qualified Code(s): R41.0 - Disorientation, unspecified (2) Fall Qualifiers: Encounter type: initial encounter Qualified Code(s): W19.XXXA - Unspecified fall, initial encounter (3) Head contusion Qualifiers: Encounter type: initial encounter Contusion of head detail: scalp Qualified Code(s): S00.03XA - Contusion of scalp, initial encounter (4) Fever Qualifiers: Fever type: unspecified Qualified Code(s): R50.9 - Fever, unspecified (5) Cirrhosis Qualifiers: Hepatic cirrhosis type: unspecified hepatic cirrhosis Ascites presence: without ascites Qualified Code(s): K74.60 - Unspecified cirrhosis of liver (6) Rib fractures Qualifiers: Encounter type: initial encounter Rib fracture type: multiple ribs Fracture type: closed Laterality: right Qualified Code(s): S22.41XA - Multiple fractures of ribs, right side, initial encounter for closed fracture <Jeremy High - Last Filed: 12/27/17 13:36> (1) Altered mental status Qualifiers: Altered mental status type: disorientation Qualified Code(s): R41.0 - Disorientation, unspecified (2) Fall Qualifiers: Encounter type: initial encounter Qualified Code(s): W19.XXXA - Unspecified fall, initial encounter (3) Head contusion Qualifiers: Encounter type: initial encounter Contusion of head detail: scalp Qualified Code(s): S00.03XA - Contusion of scalp, initial encounter (4) Fever Qualifiers: Fever type: unspecified Qualified Code(s): R50.9 - Fever, unspecified (5) Cirrhosis Qualifiers: Hepatic cirrhosis type: unspecified hepatic cirrhosis Ascites presence: without ascites Qualified Code(s): K74.60 - Unspecified cirrhosis of liver (6) Rib fractures Qualifiers: Encounter type: initial encounter Rib fracture type: multiple ribs Fracture type: closed Laterality: right Qualified Code(s): S22.41XA - Multiple fractures of ribs, right side, initial encounter for closed fracture
[2017-12-27] MEDS: Aspirin 81 MG TAB.CHEW PO SCH (10:07)
[2017-12-27] MEDS: amLODIPine 5 MG TABLET PO SCH (10:07)
[2017-12-27] MEDS: Carbidopa/Levodopa 25/100 TABLET PO SCH ×4 (10:07→19:47)
[2017-12-27] MEDS: BuPROPion SR (12 HR) 150 MG TABLET PO SCH ×2 (10:07→19:47)
[2017-12-27] MEDS ORDERED: Isovue-370 500 ML INFUS..BTL IV ONE (11:07)
[2017-12-27] MEDS: cefTRIAXone 1,000 MG in Water for inj. (sterile) 20 ML 10 ML IVP SCH (14:44)
[2017-12-27] MEDS ORDERED: Melatonin 3 MG TABLET PO PRN (18:29)
[2017-12-28] MEDS: *HR* Heparin 5,000 UNIT/ML VIAL SQ SCH ×2 (05:54→14:14)
[2017-12-28 06:25] LABS: Basophils % 0.2 %; Eosinophils % 0.6 %; Hematocrit 31.2 % (35.3-44.9); Hemoglobin 10.3 g/dL (11.5-15.4); Immature Granulocytes % 0.2 % (0-4); Lymphocytes # 0.9 K/mcL (0.6-4.6); Lymphocytes % 14.2 %; Mean Corpuscular Volume 81.9 fL (83.0-100.0); Mean Platelet Volume 10.5 fL (9.4-12.4); Monocytes # 0.4 K/mcL (0.0-1.3); Monocytes % 6.9 %; Neutrophils # 4.9 K/mcL (1.6-8.9); Platelet Count 143 K/mcL (140-400); Red Blood Count 3.81 M/mcL (3.82-4.97); Segmented Neutrophils % 77.9 %
[2017-12-28] MEDS: Aspirin 81 MG TAB.CHEW PO SCH (10:21)
[2017-12-28] MEDS: BuPROPion SR (12 HR) 150 MG TABLET PO SCH (10:22)
[2017-12-28] MEDS: cefTRIAXone 1,000 MG in Water for inj. (sterile) 20 ML 10 ML IVP SCH (10:22)
[2017-12-28] MEDS: Carbidopa/Levodopa 25/100 TABLET PO SCH ×2 (10:22→13:45)
[2017-12-28] MEDS: amLODIPine 5 MG TABLET PO SCH (10:22)
--- NOTE | 2017-12-28 13:02 | Discharge Summary ---
<Dusty Purcell Henry - Last Filed: 12/28/17 13:33> - NOTES TO OUTPATIENT PROVIDER Notes to Outpatient Provider: Patient was admitted for traumatic fall secondary to syncope. Workup for cardiovascular or cerebral etiology was negative. Patient will be discharged in stable clinical condition back to home with hospice. PT/OT recommendation is to continue current treatment at home. Patient will require close follow-up with primary care physician and neurology for Parkinson's. Patient did demonstrate symptoms of UTI during hospital course and will be sent home with 5 days of Omnicef. Date of Encounter: 12/28/17 Time of Encounter: 12:59 - Discharge Diagnosis (1) Altered mental status Priority: Primary Status: Resolved Assessment and Plan: Patient was alert and oriented 2 at admission and remembered falling This appears to be her baseline according to family Fall was initially thought to be mechanical until she admitted syncope Patient alert and oriented 3 on my exam this morning Plan Patient does not currently appear altered and states she wants to go home PT/OT evaluation recommended home with caregivers Workup including echocardiogram and head to toe CT scans were negative for acute process Etiology of AMS and fall is possibly UTI or vasovagal Patient stable for discharge with home health care Qualifiers: Altered mental status type: disorientation Qualified Code(s): R41.0 - Disorientation, unspecified (2) Fall Priority: Secondary Status: Resolved Assessment and Plan: Patient presented with mechanical fall, fell forward while getting up from chair , admitted syncope Obtained left forehead contusion, also has right 3-4 rib non-displaced fractures (no tenderness to palpation) hx of parkinsions disease, UDS positive for opiates (prescribed) Plan: Plan as seen above Qualifiers: Encounter type: initial encounter Qualified Code(s): W19.XXXA - Unspecified fall, initial encounter (3) Head contusion Priority: Secondary Status: Resolved Assessment and Plan: left forehead contusion CT head negative Patient not complaining of pain Qualifiers: Encounter type: initial encounter Contusion of head detail: scalp Qualified Code(s): S00.03XA - Contusion of scalp, initial encounter (4) Fever Priority: Secondary Status: Acute Assessment and Plan: patient had fever of 101.3 at admission, no fever since admission WBC within normal limits Ct abdomen/pelvis, chest negative for infection patient was tachycardic at admission, normal rate since admission urinalysis suspicious for infection Patient started on Rocephin 12/27 stopped 12/28 Will send home with 5 days Omnicef Qualifiers: Fever type: unspecified Qualified Code(s): R50.9 - Fever, unspecified (5) Cirrhosis Priority: Secondary Status: Chronic Assessment and Plan: unspecified cirrhosis follows Dr. Leiva LFTS around baseline at admission labs monitored no incident plan: follow up with GI Qualifiers: Hepatic cirrhosis type: unspecified hepatic cirrhosis Ascites presence: without ascites Qualified Code(s): K74.60 - Unspecified cirrhosis of liver (6) Rib fractures Priority: Secondary Status: Acute Assessment and Plan: Patient is not tender to palpation pain control with tylenol and nsaids. Qualifiers: Encounter type: initial encounter Rib fracture type: multiple ribs Fracture type: closed Laterality: right Qualified Code(s): S22.41XA - Multiple fractures of ribs, right side, initial encounter for closed fracture (7) Parkinsons disease Priority: Secondary Status: Acute Assessment and Plan: controlled continue sinemet at discharge (8) Hospice care patient Priority: Secondary Status: Chronic Assessment and Plan: Patient will be discharged with hospice referral Hospital course: Ms. Covarrubias is a 67 year old female presented vai EMS after falling. Patient was sitting on the couch and tried to get up on her own without assistance and fell forward. Patient reported dizziness. Patient was found by her [facility] hospice aid to be on the ground and EMS was called by them. Patient had a left forehead cut and bruise. In the past year patient has had multiple falls and has been evaluated in the ED but not requiring admission. Imaging done in the ER included: Thoracic spine Ct, lumbar spine CT, chest x-ray, CT head, CT chest , cervical spine CT and abdominal pelvis CT. Patient has acute fractures of right third and fifth ribs anteriorly, nondisplaced. All other imaging was normal. She denied chest pain, sob, abdominal pain. Echocardiogram showed mild diastolic dysfunction and EF 70-75%. Patient did develop UTI sx and was started on Rocephin for 1 day then transitioned to Omnicef for discharge. Patient did also develop diarrhea which was negative for C. diff. PT/OT was consulted who determined patient was stable for discharge with resumption of established home health and hospice care. Patient was discharged in stable condition to home hospice. Discharge discussed with: patient - Time Spent with Patient Total time spent providing and/or coordinating discharge services: - Discharge Medications Prescriptions: Cefdinir [Omnicef] 300 mg PO BID 5 Days #10 capsule Home Medications: Amlodipine Besylate/Benazepril [Lotrel 5-10 mg Capsule] 1 cap PO DAILY 09/09/16 [History] Aspirin 81 mg PO DAILY 09/09/16 [History] BuPROPion SR (12 HR) [Wellbutrin SR] 150 mg PO BID 09/09/16 [History] Carbidopa/Levodopa 25/100 [Sinemet 25/100] 1 tab PO QID 09/09/16 [History] Gabapentin [Neurontin] 100 mg PO TID 09/09/16 [History] Gabapentin [Neurontin] 600 mg PO TID 09/09/16 [History] LORazepam [Ativan] 0.5 mg PO TID PRN 09/09/16 [History] Loperamide [Imodium] 2 mg PO 8XD PRN 09/09/16 [History] Omeprazole [PriLOSEC] 40 mg PO DAILY 09/09/16 [History] Ondansetron HCl [Zofran] 4 mg PO Q6H PRN 09/09/16 [History] Oxycodone HCl [Oxycontin] 40 mg PO Q6H 09/09/16 [History] Prochlorperazine Maleate [Compazine] 10 mg PO Q8HR PRN 09/09/16 [History] Promethazine HCl 12.5 mg PO Q6H PRN 09/09/16 [History] Sertraline [Zoloft] 100 mg PO DAILY 09/09/16 [History] Simvastatin [Zocor] 20 mg PO HS 09/09/16 [History] Ibuprofen [Motrin] 600 mg PO Q8HR PRN #15 tab 10/30/16 [Rx] Cefdinir [Omnicef] 300 mg PO BID 5 Days #10 capsule 12/28/17 [Rx] Allergies/Adverse Reactions: 3 Allergy/AdvReac Type Severity Reaction Status Date / Time No Known Allergies Allergy Verified 12/26/17 17:59 Date of admission: 12/26/17 20:28 Primary care physician: Marbin Aldrich Jr, MD Discharging clinician: Dusty Purcell - Constitutional Vitals: Temp Pulse Resp BP Pulse Ox 98.1 F 68 17 180/57 97 12/28/17 12:02 12/28/17 12:02 12/28/17 12:02 12/28/17 12:02 12/28/17 12:02 Exam: Patient in no acute distress, alert and oriented 3 There is a contusion and wound to the left forehead, no active bleeding Cranial nerves II through XII intact, all 4 extremities 5 out of 5 motor Heart in regular rate and rhythm without murmur or gallop Lungs clear to auscultation bilaterally without wheeze or rales Anterior chest wall is nontender to palpation Abdomen soft and nontender with normal bowel sounds Bilateral lower extremities are not edematous Skin is warm and dry - Patient Status Disposition: Hospice - Home Condition: Fair Functional capacity at discharge: wheelchair bound Overall status at discharge: patient is back to baseline - Discharge Instructions Instructions: Cefdinir (By mouth), Weakness (GEN), Altered Mental Status (GEN) , Fall Prevention (GEN) Follow Up With: Marbin Aldrich Jr, MD [Primary Care Provider] - (web requested 12/28/2017) Osorio Gordon MD [Partnered Physician] - 01/06/18 7:30 am (Please follow up as schedule...) Forms: Work/School Release - Diet and Activity Activity: as per physical therapy Diet: advance to your usual diet <Jeremy High - Last Filed: 12/28/17 17:11> Orders not resulted at time of discharge: Pending orders 12/29/17 04:00 A1C [Hgb A1C] AM 0400 Date of Encounter: 12/28/17 - Discharge Diagnosis (1) Altered mental status Status: Resolved Qualifiers: Altered mental status type: disorientation Qualified Code(s): R41.0 - Disorientation, unspecified (2) Fall Status: Resolved Qualifiers: Encounter type: initial encounter Qualified Code(s): W19.XXXA - Unspecified fall, initial encounter (3) Head contusion Status: Resolved Qualifiers: Encounter type: initial encounter Contusion of head detail: scalp Qualified Code(s): S00.03XA - Contusion of scalp, initial encounter (4) Fever Status: Acute Qualifiers: Fever type: unspecified Qualified Code(s): R50.9 - Fever, unspecified (5) Cirrhosis Status: Chronic Qualifiers: Hepatic cirrhosis type: unspecified hepatic cirrhosis Ascites presence: without ascites Qualified Code(s): K74.60 - Unspecified cirrhosis of liver (6) Rib fractures Status: Acute Qualifiers: Encounter type: initial encounter Rib fracture type: multiple ribs Fracture type: closed Laterality: right Qualified Code(s): S22.41XA - Multiple fractures of ribs, right side, initial encounter for closed fracture (7) Parkinsons disease Status: Acute (8) Hospice care patient Status: Chronic Hospital course: Ms. Covarrubias is a 67 year old female - Time Spent with Patient Total time spent providing and/or coordinating discharge services: Date of admission: 12/26/17 20:28 Primary care physician: Marbin Aldrich Jr, MD - Constitutional Vitals: Temp Pulse Resp BP Pulse Ox 98.1 F 68 17 176/81 97 12/28/17 12:02 12/28/17 12:02 12/28/17 12:02 12/28/17 14:27 12/28/17 12:02 - Attending Attestation I examined this patient and my medical decision-making was reviewed with the Resident Physician. I agree with the documented findings, disposition and treatment plan as described except to the extent set forth below. Patient needs follow-up with Neurology for frequent falls, possibly med or orthostat related. Needs primary care follow-up for diarrhea and hypertension.
--- NOTE | 2017-12-28 14:23 | Physician Discharge Referral ---
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 For more information, call the [place] Tobacco Quit Line at 4-633-MGVJ-NOW. - Diet/Nutrition Diet/Nutrition Orders: Regular - Activity Activity Orders: Chair - Services Needed Following services are medically necessary services: Nursing, Home Health Aide - Transfer Medications Prescriptions: Cefdinir [Omnicef] 300 mg PO BID 5 Days #10 capsule Home Medications: Amlodipine Besylate/Benazepril [Lotrel 5-10 mg Capsule] 1 cap PO DAILY 09/09/16 [History] Aspirin 81 mg PO DAILY 09/09/16 [History] BuPROPion SR (12 HR) [Wellbutrin SR] 150 mg PO BID 09/09/16 [History] Carbidopa/Levodopa 25/100 [Sinemet 25/100] 1 tab PO QID 09/09/16 [History] Gabapentin [Neurontin] 100 mg PO TID 09/09/16 [History] Gabapentin [Neurontin] 600 mg PO TID 09/09/16 [History] LORazepam [Ativan] 0.5 mg PO TID PRN 09/09/16 [History] Loperamide [Imodium] 2 mg PO 8XD PRN 09/09/16 [History] Omeprazole [PriLOSEC] 40 mg PO DAILY 09/09/16 [History] Ondansetron HCl [Zofran] 4 mg PO Q6H PRN 09/09/16 [History] Oxycodone HCl [Oxycontin] 40 mg PO Q6H 09/09/16 [History] Prochlorperazine Maleate [Compazine] 10 mg PO Q8HR PRN 09/09/16 [History] Promethazine HCl 12.5 mg PO Q6H PRN 09/09/16 [History] Sertraline [Zoloft] 100 mg PO DAILY 09/09/16 [History] Simvastatin [Zocor] 20 mg PO HS 09/09/16 [History] Ibuprofen [Motrin] 600 mg PO Q8HR PRN #15 tab 10/30/16 [Rx] Cefdinir [Omnicef] 300 mg PO BID 5 Days #10 capsule 12/28/17 [Rx] Allergies/Adverse Reactions: 3 Allergy/AdvReac Type Severity Reaction Status Date / Time No Known Allergies Allergy Verified 12/26/17 17:59 Certification: Further, I certify that my clinical findings support that this patient is homebound (i.e. absences from home require considerable and taxing effort and are for medical reasons or yazidism services or infrequently or short duration when for other reasons) because: Patient has Parkinsons and is unable to ambulate secondary to disease and treatment Homebound Reason: Patient requires assistance of a person or device to safely leave home Attestation: My signature below is to certify that this patient is under my care and that I, or nurse practitioner, or a physician's assistant program manager working with me, has a face-to -face encounter with this patient.
[2017-12-28 14:29] VITALS: BP 176/81
--- NOTE | 2017-12-29 17:54 | Electrocardiograph Report ---
[address] [place], [place] [address] Test Date: 2017-12-26 Pat Name: Keli Covarrubias Department: EXAM4 Room: 2A41 Gender: F [employer]visor: : [id number] Requested By: Lidia Portillo Order Number: [id number] Reading MD: Guadalupe Arreguin Measurements Intervals [place] Rate: 72 P: 28 MN: 53 QRS: 17 QRSD: 92 T: 34 QT: 392 QTc: 429 Interpretive Statements Sinus rhythm Electronically Signed On 12-29-2017 17:52:25 EDT by Guadalupe Arreguin
== END 2017-12-28 18:00 | disposition hospice, home (50) ==
LOC: EMEROOARM 17:47 → 2ANU 17:47
PROVIDERS: ADMIT Internal Medicine; ATTEND Internal Medicine

== ENCOUNTER 2018-01-17 19:44 | Observation (INO) ==
[2018-01-17] MEDS ORDERED: 0.9 % Sodium Chloride 1,000 ML IVC ONE (19:55)
--- NOTE | 2018-01-17 20:00 | Emergency Department Note ---
Disposition Clinical Impression: Febrile illness, Parkinsons disease Altered mental status Qualifiers: Altered mental status type: unspecified Qualified Code(s): R41.82 - Altered mental status, unspecified Anemia Qualifiers: Anemia type: unspecified type Qualified Code(s): D64.9 - Anemia, unspecified Fall Qualifiers: Encounter type: initial encounter Qualified Code(s): W19.XXXA - Unspecified fall, initial encounter Disposition: Admitted As Inpatient Condition: Fair Time of Disposition: 22:07 General Adult HPI - General Stated complaint: Fall Time Seen by Provider: 01/17/18 19:53 Source: EMS Mode of arrival: EMS Limitations: altered mental status Nursing Notes Reviewed: Yes Vital Signs Reviewed: Yes - History of Present Illness HPI Narrative: 67-year-old female with history of hypertension presents for evaluation of altered mental status. EMS report the patient also had a fall. There are no family at bedside to verify the fall. Patient typically gets around a wheelchair however EMS reported that affect the patient up off the ground. Denies any specific head injury. Patient is acutely altered from EMS history. Patient denies any complaints. No chest pain or shortness of breath. Abdominal pain. No nausea or vomiting. - Related Data Home Medications Medication Instructions Recorded Confirmed Amlodipine Besylate/Benazepril 1 cap PO DAILY 09/09/16 11/25/16 [Lotrel 5-10 mg Capsule] Aspirin 81 mg PO DAILY 09/09/16 11/25/16 BuPROPion SR (12 HR) [Wellbutrin 150 mg PO BID 09/09/16 11/25/16 SR] Carbidopa/Levodopa 25/100 [Sinemet 1 tab PO QID 09/09/16 11/25/16 25/100] Gabapentin [Neurontin] 100 mg PO TID 09/09/16 11/25/16 Gabapentin [Neurontin] 600 mg PO TID 09/09/16 11/25/16 LORazepam [Ativan] 0.5 mg PO TID PRN 09/09/16 11/25/16 Loperamide [Imodium] 2 mg PO 8XD PRN 09/09/16 11/25/16 Omeprazole [PriLOSEC] 40 mg PO DAILY 09/09/16 11/25/16 Ondansetron HCl [Zofran] 4 mg PO Q6H PRN 09/09/16 11/25/16 Oxycodone HCl [Oxycontin] 40 mg PO Q6H 09/09/16 11/25/16 Prochlorperazine Maleate 10 mg PO Q8HR PRN 09/09/16 11/25/16 [Compazine] Promethazine HCl 12.5 mg PO Q6H PRN 09/09/16 11/25/16 Sertraline [Zoloft] 100 mg PO DAILY 09/09/16 11/25/16 Simvastatin [Zocor] 20 mg PO HS 09/09/16 11/25/16 Previous Rx's Medication Instructions Recorded Ibuprofen [Motrin] 600 mg PO Q8HR PRN #15 tab 10/30/16 Cefdinir [Omnicef] 300 mg PO BID 5 Days #10 capsule 12/28/17 Allergies Allergy/AdvReac Type Severity Reaction Status Date / Time No Known Allergies Allergy Verified 12/26/17 17:59 All systems ED: reviewed and negative except as stated. Constitutional: Reports: fever Cardiovascular: Denies: chest pain Respiratory: Denies: cough, dyspnea Gastrointestinal: Denies: abdominal pain, nausea, vomiting Past Medical History - Past Medical History Source: patient Medical history: Reports: hypertension Surgical history: Reports: cholecystectomy Psychiatric history: Reports: depression - Social History Smoking Status: 2nd Hand Smoke Exposure Smokeless Tobacco Status: No Alcohol use: Reports: none Drug use: Reports: none Physical Exam - General Limitations: altered mental status General appearance: alert, in no apparent distress - Head Head exam: atraumatic, normocephalic, normal inspection - Eye Eye exam: Present: normal appearance, PERRL, EOMI. Absent: miosis, mydriasis - ENT ENT exam: normal exam, mucous membranes dry - Neck Neck exam: Present: normal inspection - Chest Chest inspection: Present: normal inspection, symmetric chest wall rise - Respiratory Respiratory exam: Present: other (Diffusely diminished). Absent: respiratory distress - Cardiovascular Cardiovascular exam: Present: regular rate, normal rhythm. Absent: systolic murmur - Abdominal Exam Abdominal exam: Present: soft, Non-Tender - Extremities Exam Extremities exam: Present: normal inspection, other (Twitching of the right upper extremity.) - Expanded Upper Extremity Exam Shoulder exam: Present: normal inspection, full ROM. Absent: tenderness Arm exam: Present: normal inspection, full ROM. Absent: tenderness Elbow exam: Present: normal inspection, full ROM. Absent: tenderness Forearm/Wrist exam: Present: normal inspection, other (Aged ecchymosis as well as scabs over the right extremity.) Hand exam: Present: normal inspection Vascular exam: Normal: capillary refill, radial pulse - Expanded Lower Extremity Exam Hip/Pelvis exam: Present: normal inspection, full ROM. Absent: tenderness Upper leg exam: Present: normal inspection, full ROM. Absent: tenderness Knee exam: Present: normal inspection. Absent: tenderness Lower leg exam: Present: normal inspection. Absent: tenderness - Back Exam Back exam: Present: normal inspection - Neurological Exam Neurological exam: Present: alert, CN II-XII intact - Expanded Neurological Exam Patient oriented to: Present: person. Absent: place, time Speech: Present: fluid speech Cranial nerves: EOM function (II, III, IV, ): Normal, facial sensation (V): Normal, facial palsy (VII): Normal, spinal accessory function (XI): Normal, tongue deviation (XII): Normal Cerebellar function: finger to nose: Abnormal Right Motor strength - LUE: 5/5 Motor strength - RUE: 5/5 Motor strength - LLE: 5/5 Motor strength - RLE: 5/5 Coma Scale Eye Opening: Spontaneous Coma Scale Motor Response: Obeys Commands Coma Scale Verbal Response: Confused Coma Scale Total: 14 - Skin Skin exam: Present: warm, dry, intact, normal color Course Course Narrative: Patient presents acutely altered. Patient does have a temperature at triage. GCS 14 given the confusion. Given the history of a possible fall. Patient with CT of the head and neck. Basic labs including a lactate blood cultures. Chest x-ray urinalysis. Disposition likely admission. - Reevaluation(s) Reevaluation #1: Family is now bedside. Patient family states she does have a history of Parkinson and is on hospice. Family states that the patient did fall the bathroom. Patient cannot get a wheelchair all the way into the bathroom. Patient does transfer from her wheelchair. This was unwitnessed and was heard by the patient's . Patient's not complaining of some left-sided pain. Patient does have aged ecchymosis to the left flank down states he did fall there proximally 2 weeks ago. Time: 20:35 Reevaluation #2: Patient seen and evaluated. GCS 14. Family states that the patient's acutely altered the started later this evening. Etiology of the fever is unknown. Patient does not have any signs of meningitis. Low concern of any [employer] [employer] infection. Patient is on hospice and family states that the patient is a DNR. Only supportive measures. Patient hospice is through [facility] with the family relates. Time: 22:05 Reevaluation #3: Will attempt to reach out to the patient's hospice nurse. Discussed the case with the hospitalist who accepted the patient. Recommend to treat for meningitis and will likely have IR intervene for lumbar puncture tomorrow. Patient is a poor candidate for lumbar puncture without any fluoroscopy. Patient's difficulty even logroll and set up to attempt to obtain CSF. Time: 22:43 Additional Reevaluation(s): Nursing staff did recheck to the hospice nurse. Hospice nurses aware that the patient is going to be admitted. Family also states that they restart the hospitalist are's. Family is not available at bedside. 2328: Hospice nurse states that as long as the patient is observation the patient remained in hospice care at this time. This information was relayed on to the hospitalist in a page. Vital Signs Temperature 103.2 F H 01/17/18 19:48 Pulse Rate 90 01/17/18 19:48 Respiratory Rate 16 01/17/18 19:48 Blood Pressure 162/67 01/17/18 19:48 O2 Sat by Pulse Oximetry 96 01/17/18 19:48 Temperature 102.7 F H 01/17/18 21:29 Pulse Rate 87 01/17/18 21:29 Respiratory Rate 18 01/17/18 21:29 Blood Pressure 151/57 01/17/18 21:29 O2 Sat by Pulse Oximetry 99 01/17/18 21:29 Oxygen Delivery Oxygen Delivery Room Air Medical Decision Making - MDM Narrative Medical decision making narrative: Patient presents after a fall earlier this evening is concerns of altered mental status. Patient does have baseline Parkinson's patient had abnormal vitals with elevated temperature at triage. Source of the fever is unknown. Flu swab is pending at this time. Patient's chest x-ray is clear and there is no history of recent cough. Patient's urinalysis is also unremarkable. CT scan abdomen pelvis showed no evidence of acute abnormality. There is no soft tissue infections or cellulitis or decubitus ulcers. Patient does not have any meningismus type symptoms. GCS of 14. Patient was given Tylenol suppository and supportive measures with IV fluids. Patient's labs show chronic baseline anemia. No elevated CK. electrolytes are clinically unremarkable. At this time the patient will be admitted for observation to ensure some symptom resolution. Family is agreeable with that plan of care. - Lab Data Lab results reviewed: Yes I reviewed the patient's lab results. Result diagrams: 01/17/18 19:55 01/17/18 19:55 Lab Results 01/17/18 01/17/18 01/17/18 Range/Units 19:55 19:55 19:55 WBC 9.4 (4.3-11.1) K/mcL RBC 3.74 L (3.82-4.97) M/mcL Hgb 10.1 L (11.5-15.4) g/dL Hct 32.0 L (35.3-44.9) % MCV 85.6 (83.0-100.0) fL MCH 27.0 L (28.0-33.3) pg MCHC 31.6 (31.6-35.5) g/dL RDW 14.2 (11.5-14.5) % Plt Count 107 L (140-400) K/mcL MPV 10.4 (9.4-12.4) fL Immature Gran % 0.5 (0-4) % Seg Neutrophils % 88.0 % Lymphocytes % 4.3 % Monocytes % 6.5 % Eosinophils % 0.5 % Basophils % 0.2 % Neutrophils # 8.2 (1.6-8.9) K/mcL Lymphocytes # 0.4 L (0.6-4.6) K/mcL Monocytes # 0.6 (0.0-1.3) K/mcL Eosinophils # 0.1 (0.0-0.6) K/mcL Basophils # 0.0 (0.0-0.2) K/mcL PT 12.6 H (9.4-12.1) Seconds INR 1.1 APTT 27.8 (26.0-36.0) Seconds Sodium 135 L (136-145) mEq/L Potassium 4.6 (3.5-5.1) mEq/L Chloride 101 (98-107) mEq/L Carbon Dioxide 26 (23-29) mEq/L BUN 24 H (8-23) mg/dL Creatinine 1.01 (0.60-1.20) mg/dL Est GFR ( Amer) > 60 (> 60) Est GFR (Non-Af Amer) 54 L (> 60) BUN/Creatinine Ratio 24 (6-26) Glucose 105 (70-105) mg/dL Calculated Osmolality 284 (280-300) Lactic Acid (0.5-2.2) mmol/L Calcium 8.9 (8.6-10.3) mg/dL Total Bilirubin 0.5 (0.3-1.0) mg/dL Direct Bilirubin 0.1 (0.0-0.2) mg/dL Indirect Bilirubin 0.4 (0.0-1.2) mg/dL AST 24 (13-39) Units/L ALT 11 (7-52) Units/L Alkaline Phosphatase 116 H (34-104) Units/L Creatine Kinase 87 (30-223) Units/L Troponin I < 0.03 (< 0.04) ng/mL Serum Total Protein 6.9 (6.4-8.9) g/dL Albumin 4.0 (3.5-5.7) g/dL Globulin 2.9 (2.4-3.5) g/dL Albumin/Globulin Ratio 1.4 (1.1-2.2) Urine Color (Yellow) Urine Clarity (Clear) Urine pH (5.0-8.0) pH Units Ur Specific [place] (1.010-1.025) Urine Protein (Neg-Trace) mg/dL Urine Glucose (UA) (Normal) mg/dL Urine Ketones (Negative) mg/dL Urine Blood (Negative) Urine Nitrite (Negative) Urine Bilirubin (Negative) Urine Urobilinogen (Normal) mg/dL Ur Leukocyte Esterase (Negative) Urine Microscopic RBC (0-3) per hpf Urine Microscopic WBC (0-3) per hpf Ur Squamous Epith Cells (None-Few) per lpf Urine Bacteria (None-Few) per hpf Hyaline Casts (None-Few) per lpf Ur Culture Indicated? (NO) Urine Opiates Screen (Lvishe=172) ng/mL Ur Barbiturates Screen (Mycuqy=222) ng/mL Ur Phencyclidine Scrn (Cutoff=25) ng/mL Ur Amphetamines Screen (Cvowdo=3051) ng/mL U Benzodiazepines Scrn (Wmyanf=669) ng/mL Urine Cocaine Screen (Cutoff= 300) ng/mL U Marijuana (THC) Screen (Cutoff = 50) ng/mL Ur Drug Screen Interp 01/17/18 01/17/18 01/17/18 Range/Units 20:02 20:30 20:30 WBC (4.3-11.1) K/mcL RBC (3.82-4.97) M/mcL Hgb (11.5-15.4) g/dL Hct (35.3-44.9) % MCV (83.0-100.0) fL MCH (28.0-33.3) pg MCHC (31.6-35.5) g/dL RDW (11.5-14.5) % Plt Count (140-400) K/mcL MPV (9.4-12.4) fL Immature Gran % (0-4) % Seg Neutrophils % % Lymphocytes % % Monocytes % % Eosinophils % % Basophils % % Neutrophils # (1.6-8.9) K/mcL Lymphocytes # (0.6-4.6) K/mcL Monocytes # (0.0-1.3) K/mcL Eosinophils # (0.0-0.6) K/mcL Basophils # (0.0-0.2) K/mcL PT (9.4-12.1) Seconds INR APTT (26.0-36.0) Seconds Sodium (136-145) mEq/L Potassium (3.5-5.1) mEq/L Chloride (98-107) mEq/L Carbon Dioxide (23-29) mEq/L BUN (8-23) mg/dL Creatinine (0.60-1.20) mg/dL Est GFR ( Amer) (> 60) Est GFR (Non-Af Amer) (> 60) BUN/Creatinine Ratio (6-26) Glucose (70-105) mg/dL Calculated Osmolality (280-300) Lactic Acid 1.6 (0.5-2.2) mmol/L Calcium (8.6-10.3) mg/dL Total Bilirubin (0.3-1.0) mg/dL Direct Bilirubin (0.0-0.2) mg/dL Indirect Bilirubin (0.0-1.2) mg/dL AST (13-39) Units/L ALT (7-52) Units/L Alkaline Phosphatase (34-104) Units/L Creatine Kinase (30-223) Units/L Troponin I (< 0.04) ng/mL Serum Total Protein (6.4-8.9) g/dL Albumin (3.5-5.7) g/dL Globulin (2.4-3.5) g/dL Albumin/Globulin Ratio (1.1-2.2) Urine Color Yellow (Yellow) Urine Clarity Clear (Clear) Urine pH 7.0 (5.0-8.0) pH Units Ur Specific [place] 1.007 L (1.010-1.025) Urine Protein 100 H (Neg-Trace) mg/dL Urine Glucose (UA) Normal (Normal) mg/dL Urine Ketones Negative (Negative) mg/dL Urine Blood Negative (Negative) Urine Nitrite Negative (Negative) Urine Bilirubin Negative (Negative) Urine Urobilinogen Normal (Normal) mg/dL Ur Leukocyte Esterase Negative (Negative) Urine Microscopic RBC 0-3 (0-3) per hpf Urine Microscopic WBC 0-3 (0-3) per hpf Ur Squamous Epith Cells Few (None-Few) per lpf Urine Bacteria None Seen (None-Few) per hpf Hyaline Casts None Seen (None-Few) per lpf Ur Culture Indicated? NO (NO) Urine Opiates Screen Negative (Selrbf=631) ng/mL Ur Barbiturates Screen Negative (Uryies=851) ng/mL Ur Phencyclidine Scrn Negative (Cutoff=25) ng/mL Ur Amphetamines Screen Negative (Ayyqet=2943) ng/mL U Benzodiazepines Scrn Negative (Dswcur=194) ng/mL Urine Cocaine Screen Negative (Cutoff= 300) ng/mL U Marijuana (THC) Screen Negative (Cutoff = 50) ng/mL Ur Drug Screen Interp See Below - Radiology Data Radiology results reviewed: Yes I reviewed the patient's radiology results. Chest X-Ray 01/17/18 19:55 IMPRESSION: Cardiomegaly and pulmonary vascular congestion D/ / Eleazar Selby MD / Eleazar Selby MD Interpreting Provider: Eleazar Selby MD Cervical Spine CT 01/17/18 19:56 IMPRESSION: No acute osseous abnormality of the cervical spine. D/ / Major Solitario / Major Solitario Interpreting Provider: aMjor Solitario Head CT 01/17/18 19:56 IMPRESSION: No acute intracranial abnormality. Diffuse atrophic changes with findings suggesting chronic microvascular ischemia D/ / Eleazar Selby MD / Eleazar Selby MD Interpreting Provider: Eleazar Selby MD Abdomen/Pelvis CT 01/17/18 20:34 IMPRESSION: 1. Focal subcutaneous soft tissue stranding in the left flank likely correlating to area of fall/trauma. 2. Cirrhotic morphology of the liver with splenomegaly. 3. Stable biliary duct dilation likely related to post cholecystectomy changes. 4. Otherwise, no acute findings in the abdomen or pelvis on this unenhanced study. 5. Stable 7 mm solid nodule in the left lung base. D/ / 01/17/2018 21:31:32 Angi Nolan MD / Jessika Newman Interpreting Provider: Angi Nolan MD - EKG Data EKG #1 EKG attestation: Yes I reviewed and interpreted this EKG. EKG shows normal: sinus rhythm Rate: normal Rhythm: NSR [place]/QRS: normal Interpretation: no acute changes, unchanged when compared to prior tracing (date ) S.BCandelario - [email or web address] Situation: Demographics Background: Presenting Complaint Assessment: Vital Signs, Course and respsone to treatment, Patient/Family Expectation Recommendation: Barrier(s) to disposition, Recommendation based on pending studies, treatments, or consults S.B.AConrado Report Given to: Dr. Farhan Coley Repor Time: 22:44
[2018-01-17] MEDS ORDERED: Acetaminophen 650 MG RECTAL SUPP RC ONE (20:11)
[2018-01-17 20:18] LABS: Basophils % 0.2 %; Eosinophils # 0.1 K/mcL (0.0-0.6); Eosinophils % 0.5 %; Hemoglobin 10.1 g/dL (11.5-15.4); Immature Granulocytes % 0.5 % (0-4); Lymphocytes # 0.4 K/mcL (0.6-4.6); Lymphocytes % 4.3 %; Mean Corpuscular HGB Conc 31.6 g/dL (31.6-35.5); Mean Corpuscular Volume 85.6 fL (83.0-100.0); Mean Platelet Volume 10.4 fL (9.4-12.4); Monocytes # 0.6 K/mcL (0.0-1.3); Monocytes % 6.5 %; Neutrophils # 8.2 K/mcL (1.6-8.9); Platelet Count 107 K/mcL (140-400); Red Blood Count 3.74 M/mcL (3.82-4.97); Red Cell Distribution Width 14.2 % (11.5-14.5)
[2018-01-17 20:25] LABS: INR 1.1; Prothrombin Time 12.6 Seconds (9.4-12.1)
[2018-01-17 20:27] LABS: Activated Partial Thrombo Time 27.8 Seconds (26.0-36.0)
[2018-01-17 20:41] LABS: Alanine Aminotransferase 11 Units/L (7-52); Albumin/Globulin Ratio 1.4 (1.1-2.2); Alkaline Phosphatase 116 Units/L (34-104); Aspartate Amino Transferase 24 Units/L (13-39); BUN/Creatinine Ratio 24 (6-26); Bilirubin,Direct 0.1 mg/dL (0.0-0.2); Bilirubin,Indirect 0.4 mg/dL (0.0-1.2); Bilirubin,Total 0.5 mg/dL (0.3-1.0); Blood Urea Nitrogen 24 mg/dL (8-23); Calcium 8.9 mg/dL (8.6-10.3); Carbon Dioxide 26 mEq/L (23-29); Chloride 101 mEq/L (98-107); Creatine Kinase 87 Units/L (30-223); Globulin 2.9 g/dL (2.4-3.5); Glucose 105 mg/dL (70-105); Osmolality,Calculated 284 (280-300); Potassium 4.6 mEq/L (3.5-5.1); Sodium 135 mEq/L (136-145); Total Protein 6.9 g/dL (6.4-8.9); eGFR For Non-African Americans 54 (> 60)
--- NOTE | 2018-01-17 20:41 | Emergency Department Note ---
Disposition Clinical Impression: Febrile illness, Parkinsons disease Altered mental status Qualifiers: Altered mental status type: unspecified Qualified Code(s): R41.82 - Altered mental status, unspecified Disposition: Admitted As Inpatient Referrals: Marbin Aldrich Jr, MD [Primary Care Provider] - General Adult HPI - General Chief complaint: ED Fall Stated complaint: Fall Time Seen by Provider: 01/17/18 19:53 Source: EMS Mode of arrival: EMS Limitations: altered mental status - History of Present Illness Pain Scale: 0 - Related Data Home Medications Medication Instructions Recorded Confirmed Amlodipine Besylate/Benazepril 1 cap PO DAILY 09/09/16 11/25/16 [Lotrel 5-10 mg Capsule] Aspirin 81 mg PO DAILY 09/09/16 11/25/16 BuPROPion SR (12 HR) [Wellbutrin 150 mg PO BID 09/09/16 11/25/16 SR] Carbidopa/Levodopa 25/100 [Sinemet 1 tab PO QID 09/09/16 11/25/16 25/100] Gabapentin [Neurontin] 100 mg PO TID 09/09/16 11/25/16 Gabapentin [Neurontin] 600 mg PO TID 09/09/16 11/25/16 LORazepam [Ativan] 0.5 mg PO TID PRN 09/09/16 11/25/16 Loperamide [Imodium] 2 mg PO 8XD PRN 09/09/16 11/25/16 Omeprazole [PriLOSEC] 40 mg PO DAILY 09/09/16 11/25/16 Ondansetron HCl [Zofran] 4 mg PO Q6H PRN 09/09/16 11/25/16 Oxycodone HCl [Oxycontin] 40 mg PO Q6H 09/09/16 11/25/16 Prochlorperazine Maleate 10 mg PO Q8HR PRN 09/09/16 11/25/16 [Compazine] Promethazine HCl 12.5 mg PO Q6H PRN 09/09/16 11/25/16 Sertraline [Zoloft] 100 mg PO DAILY 09/09/16 11/25/16 Simvastatin [Zocor] 20 mg PO HS 09/09/16 11/25/16 Previous Rx's Medication Instructions Recorded Ibuprofen [Motrin] 600 mg PO Q8HR PRN #15 tab 07/20/17 Cefdinir [Omnicef] 300 mg PO BID 5 Days #10 capsule 12/28/17 Allergies Allergy/AdvReac Type Severity Reaction Status Date / Time No Known Allergies Allergy Verified 12/26/17 17:59 Constitutional: Reports: fever Cardiovascular: Denies: chest pain Respiratory: Denies: cough, dyspnea Gastrointestinal: Denies: abdominal pain, nausea, vomiting Past Medical History - Past Medical History Medical history: Reports: hypertension Surgical history: Reports: cholecystectomy Psychiatric history: Reports: depression - Social History Smoking Status: 2nd Hand Smoke Exposure Smokeless Tobacco Status: No Alcohol use: Reports: none Drug use: Reports: none Physical Exam - General Limitations: altered mental status General appearance: alert, in no apparent distress Course Vital Signs Temperature 103.2 F H 01/17/18 19:48 Pulse Rate 90 01/17/18 19:48 Respiratory Rate 16 01/17/18 19:48 Blood Pressure 162/67 01/17/18 19:48 O2 Sat by Pulse Oximetry 96 01/17/18 19:48 Temperature 102.7 F H 01/17/18 21:29 Pulse Rate 87 01/17/18 21:29 Respiratory Rate 18 01/17/18 21:29 Blood Pressure 151/57 01/17/18 21:29 O2 Sat by Pulse Oximetry 99 01/17/18 21:29 Oxygen Delivery Oxygen Delivery Room Air Medical Decision Making - MDM Narrative Medical decision making narrative: No source of infection yet at this time. Urine is clear. Chest x-ray did not show any pneumonia. Patient need to be admitted for observation secondary to the mental status changes as well as fever. CT of the brain and neck were also unremarkable. - Lab Data Result diagrams: 01/17/18 19:55 01/17/18 19:55 Lab Results 01/17/18 01/17/18 01/17/18 Range/Units 19:55 19:55 19:55 WBC 9.4 (4.3-11.1) K/mcL RBC 3.74 L (3.82-4.97) M/mcL Hgb 10.1 L (11.5-15.4) g/dL Hct 32.0 L (35.3-44.9) % MCV 85.6 (83.0-100.0) fL MCH 27.0 L (28.0-33.3) pg MCHC 31.6 (31.6-35.5) g/dL RDW 14.2 (11.5-14.5) % Plt Count 107 L (140-400) K/mcL MPV 10.4 (9.4-12.4) fL Immature Gran % 0.5 (0-4) % Seg Neutrophils % 88.0 % Lymphocytes % 4.3 % Monocytes % 6.5 % Eosinophils % 0.5 % Basophils % 0.2 % Neutrophils # 8.2 (1.6-8.9) K/mcL Lymphocytes # 0.4 L (0.6-4.6) K/mcL Monocytes # 0.6 (0.0-1.3) K/mcL Eosinophils # 0.1 (0.0-0.6) K/mcL Basophils # 0.0 (0.0-0.2) K/mcL PT 12.6 H (9.4-12.1) Seconds INR 1.1 APTT 27.8 (26.0-36.0) Seconds Sodium 135 L (136-145) mEq/L Potassium 4.6 (3.5-5.1) mEq/L Chloride 101 (98-107) mEq/L Carbon Dioxide 26 (23-29) mEq/L BUN 24 H (8-23) mg/dL Creatinine 1.01 (0.60-1.20) mg/dL Est GFR ( Amer) > 60 (> 60) Est GFR (Non-Af Amer) 54 L (> 60) BUN/Creatinine Ratio 24 (6-26) Glucose 105 (70-105) mg/dL Calculated Osmolality 284 (280-300) Lactic Acid (0.5-2.2) mmol/L Calcium 8.9 (8.6-10.3) mg/dL Total Bilirubin 0.5 (0.3-1.0) mg/dL Direct Bilirubin 0.1 (0.0-0.2) mg/dL Indirect Bilirubin 0.4 (0.0-1.2) mg/dL AST 24 (13-39) Units/L ALT 11 (7-52) Units/L Alkaline Phosphatase 116 H (34-104) Units/L Creatine Kinase 87 (30-223) Units/L Troponin I < 0.03 (< 0.04) ng/mL Serum Total Protein 6.9 (6.4-8.9) g/dL Albumin 4.0 (3.5-5.7) g/dL Globulin 2.9 (2.4-3.5) g/dL Albumin/Globulin Ratio 1.4 (1.1-2.2) Urine Color (Yellow) Urine Clarity (Clear) Urine pH (5.0-8.0) pH Units Ur Specific [place] (1.010-1.025) Urine Protein (Neg-Trace) mg/dL Urine Glucose (UA) (Normal) mg/dL Urine Ketones (Negative) mg/dL Urine Blood (Negative) Urine Nitrite (Negative) Urine Bilirubin (Negative) Urine Urobilinogen (Normal) mg/dL Ur Leukocyte Esterase (Negative) Urine Microscopic RBC (0-3) per hpf Urine Microscopic WBC (0-3) per hpf Ur Squamous Epith Cells (None-Few) per lpf Urine Bacteria (None-Few) per hpf Hyaline Casts (None-Few) per lpf Ur Culture Indicated? (NO) Urine Opiates Screen (Mnztcs=963) ng/mL Ur Barbiturates Screen (Ebhyju=066) ng/mL Ur Phencyclidine Scrn (Cutoff=25) ng/mL Ur Amphetamines Screen (Kglrqc=0362) ng/mL U Benzodiazepines Scrn (Wvzkun=726) ng/mL Urine Cocaine Screen (Cutoff= 300) ng/mL U Marijuana (THC) Screen (Cutoff = 50) ng/mL Ur Drug Screen Interp 01/17/18 01/17/18 01/17/18 Range/Units 20:02 20:30 20:30 WBC (4.3-11.1) K/mcL RBC (3.82-4.97) M/mcL Hgb (11.5-15.4) g/dL Hct (35.3-44.9) % MCV (83.0-100.0) fL MCH (28.0-33.3) pg MCHC (31.6-35.5) g/dL RDW (11.5-14.5) % Plt Count (140-400) K/mcL MPV (9.4-12.4) fL Immature Gran % (0-4) % Seg Neutrophils % % Lymphocytes % % Monocytes % % Eosinophils % % Basophils % % Neutrophils # (1.6-8.9) K/mcL Lymphocytes # (0.6-4.6) K/mcL Monocytes # (0.0-1.3) K/mcL Eosinophils # (0.0-0.6) K/mcL Basophils # (0.0-0.2) K/mcL PT (9.4-12.1) Seconds INR APTT (26.0-36.0) Seconds Sodium (136-145) mEq/L Potassium (3.5-5.1) mEq/L Chloride (98-107) mEq/L Carbon Dioxide (23-29) mEq/L BUN (8-23) mg/dL Creatinine (0.60-1.20) mg/dL Est GFR ( Amer) (> 60) Est GFR (Non-Af Amer) (> 60) BUN/Creatinine Ratio (6-26) Glucose (70-105) mg/dL Calculated Osmolality (280-300) Lactic Acid 1.6 (0.5-2.2) mmol/L Calcium (8.6-10.3) mg/dL Total Bilirubin (0.3-1.0) mg/dL Direct Bilirubin (0.0-0.2) mg/dL Indirect Bilirubin (0.0-1.2) mg/dL AST (13-39) Units/L ALT (7-52) Units/L Alkaline Phosphatase (34-104) Units/L Creatine Kinase (30-223) Units/L Troponin I (< 0.04) ng/mL Serum Total Protein (6.4-8.9) g/dL Albumin (3.5-5.7) g/dL Globulin (2.4-3.5) g/dL Albumin/Globulin Ratio (1.1-2.2) Urine Color Yellow (Yellow) Urine Clarity Clear (Clear) Urine pH 7.0 (5.0-8.0) pH Units Ur Specific [place] 1.007 L (1.010-1.025) Urine Protein 100 H (Neg-Trace) mg/dL Urine Glucose (UA) Normal (Normal) mg/dL Urine Ketones Negative (Negative) mg/dL Urine Blood Negative (Negative) Urine Nitrite Negative (Negative) Urine Bilirubin Negative (Negative) Urine Urobilinogen Normal (Normal) mg/dL Ur Leukocyte Esterase Negative (Negative) Urine Microscopic RBC 0-3 (0-3) per hpf Urine Microscopic WBC 0-3 (0-3) per hpf Ur Squamous Epith Cells Few (None-Few) per lpf Urine Bacteria None Seen (None-Few) per hpf Hyaline Casts None Seen (None-Few) per lpf Ur Culture Indicated? NO (NO) Urine Opiates Screen Negative (Bqksrx=672) ng/mL Ur Barbiturates Screen Negative (Nidvem=245) ng/mL Ur Phencyclidine Scrn Negative (Cutoff=25) ng/mL Ur Amphetamines Screen Negative (Ijgcoy=5004) ng/mL U Benzodiazepines Scrn Negative (Ywrhol=130) ng/mL Urine Cocaine Screen Negative (Cutoff= 300) ng/mL U Marijuana (THC) Screen Negative (Cutoff = 50) ng/mL Ur Drug Screen Interp See Below Critical Care Time Critical Care Time: Yes Total Critical Care Time: 30 Attestation: Critical care times of 30 minutes spent in medical management of possible sepsis as well as altered mental status. Attestation Statement - Attestation Attestation: I examined this patient and my medical decision-making was reviewed with the Resident Physician. I agree with the documented findings, disposition and treatment plan as described except to the extent set forth below. 67-year-old female with a history of severe Parkinson's disease who is currently on hospice care presents to the ER for a fall and altered mental status. Patient was found in the bathroom after the family heard a loud noise when she fell. Patient uses a wheelchair to get around. The wheelchair was sitting outside of the bathroom. He is unclear if she hit her head or not as she does not seem to be completely oriented. She is also noted to have a fever of 103. Patient had a old ecchymosis to the left flank region as well. Patient will need to be worked up for altered mental status as well as with her fever. Will do CTA head and cervical spine due to the fall. Chest x-ray to rule out any pneumonia. Check labs and urinalysis.
[2018-01-17 20:42] LABS: Troponin I < 0.03 ng/mL (< 0.04)
[2018-01-17 20:45] LABS: Bilirubin,Urine Negative (Negative); Blood,Urine Negative (Negative); Clarity,Urine Clear (Clear); Color,Urine Yellow (Yellow); Glucose,Urine (UA) Normal (Normal); Ketones,Urine Negative (Negative); Leukocyte Esterase,Urine Negative (Negative); Nitrite,Urine Negative (Negative); Protein,Urine 100 mg/dL (Neg-Trace); Specific Gravity,Urine 1.007 (1.010-1.025); Urobilinogen,Urine Normal (Normal)
[2018-01-17 20:47] LABS: Bacteria,Urine None Seen per hpf (None-Few); Hyaline Casts,Urine None Seen per lpf (None-Few); RBC,Urine 0-3 per hpf (0-3); Squamous Epithelial Cell,Urine Few per lpf (None-Few); WBC,Urine 0-3 per hpf (0-3)
[2018-01-17 20:54] LABS: Amphetamine Screen,Urine Negative ng/mL (Cutoff=1000); Barbiturate Screen,Urine Negative ng/mL (Cutoff=200); Benzodiazepines Screen,Urine Negative ng/mL (Cutoff=200); Cannabinoid Screen,Urine Negative ng/mL (Cutoff = 50); Cocaine Screen,Urine Negative ng/mL (Cutoff= 300); Opiate Screen,Urine Negative ng/mL (Cutoff=300); Phencyclidine Screen,Urine Negative ng/mL (Cutoff=25)
[2018-01-17] MEDS ORDERED: cefTRIAXone 2,000 MG in Water for inj. (sterile) 20 ML 20 ML IVP ONE (22:42)
[2018-01-18] MEDS ORDERED: Naloxone 0.4 MG/ML INJ IVP PRN (01:03)
--- NOTE | 2018-01-18 01:16 | Internal Med History&Physical ---
Date of Encounter: 01/18/18 Time of Encounter: 01:11 Internal Medicine - H&P: HPI Chief complaint: Fall Admitted From: Emergency Dept Plans for Post Hospital Care: Home History of present illness: Ms. Covarrubias is a 67 year old female with stated history of Parkinson's disease on hospice presents with a fall. Patient is a poor historian and has difficulty giving a complete history. She states that while at home she fell in the bathroom. She states that her was in the bathroom with her and witnessed this fall. She is unsure whether or not she passed out or not. She states the squad was called and she was on the bathroom for for approximately half hour until squad arrived. I asked the patient how she is feeling before this fall and she states that she cannot remember. She denies any fevers at home but states that they told her she had a fever in the emergency department. She denies headache reports chronic neck pain that is unchanged. She denies vision changes, upper respiratory symptoms including sore throat and runny nose. She reports a chronic nonproductive cough. She denies chest pain. She reports mild epigastric pain and reports vomiting was unable to tell me when the last time she vomited in the character of her emesis. She reports chronic diarrhea that she reports is unchanged. She is unable to elaborate on the frequency and character of her diarrhea. She states she uses a wheelchair to get around and does not walk. She denies any skin new skin lesions, rashes, nonhealing wounds. She reports she lives at home with her and she has a neighbor who helps her with her medications. She also reports she is on hospice through [facility] and they come to her house several times a week to help her with things. She reports she has been taking her medication as prescribed and denies any new medications or changes in her medications. Past Med Surg Social Fam HX - Past Medical History Medical history: hypertension Additional medical history: Parkinsons Psychiatric history: depression - Past Surgical History Surgical History: cholecystectomy - Social History Smoking Status: 2nd Hand Smoke Exposure Smokeless Tobacco Status: No Alcohol use: none Drug use: none Internal Medicine - H&P: Meds Amlodipine Besylate/Benazepril [Lotrel 5-10 mg Capsule] 1 cap PO DAILY 09/09/16 [History] Aspirin 81 mg PO DAILY 09/09/16 [History] BuPROPion SR (12 HR) [Wellbutrin SR] 150 mg PO BID 09/09/16 [History] Carbidopa/Levodopa 25/100 [Sinemet 25/100] 1 tab PO QID 09/09/16 [History] Gabapentin [Neurontin] 100 mg PO TID 09/09/16 [History] Gabapentin [Neurontin] 600 mg PO TID 09/09/16 [History] LORazepam [Ativan] 0.5 mg PO TID PRN 09/09/16 [History] Loperamide [Imodium] 2 mg PO 8XD PRN 09/09/16 [History] Omeprazole [PriLOSEC] 40 mg PO DAILY 09/09/16 [History] Ondansetron HCl [Zofran] 4 mg PO Q6H PRN 09/09/16 [History] Oxycodone HCl [Oxycontin] 40 mg PO Q6H 09/09/16 [History] Prochlorperazine Maleate [Compazine] 10 mg PO Q8HR PRN 09/09/16 [History] Promethazine HCl 12.5 mg PO Q6H PRN 09/09/16 [History] Sertraline [Zoloft] 100 mg PO DAILY 09/09/16 [History] Simvastatin [Zocor] 20 mg PO HS 09/09/16 [History] Ibuprofen [Motrin] 600 mg PO Q8HR PRN #15 tab 10/30/16 [Rx] Cefdinir [Omnicef] 300 mg PO BID 5 Days #10 capsule 12/28/17 [Rx] 3 Allergy/AdvReac Type Severity Reaction Status Date / Time No Known Allergies Allergy Verified 12/26/17 17:59 All Systems PM: A 10-system review of systems was performed and is negative for pertinent findings except as documented above in the HPI. - Constitutional Constitutional: fever(s), no chills - EENT Eyes: no change in vision Nose, mouth and throat: no sinus pain, no sinus pressure, no sore throat - Cardiovascular Cardiovascular ROS IM: no chest pain, no dyspnea, no lightheadedness, no syncope (unsure per patient) - Respiratory Respiratory: cough (chronic), no dyspnea, no chest congestion, no excessive phlegm production, no change in phlegm color - Gastrointestinal Gastrointestinal: abdominal pain, diarrhea, nausea, vomiting, no change in stool character Additional comments: unsure if she has experienced hematemasis, hematochezia, melena - Genitourinary Genitourinary: no dysuria, no urinary frequency, no urinary hesitancy - Musculoskeletal Musculoskeletal ROS IM: neck pain (chronic), no arthralgias, no myalgias, no numbness, no stiffness, no tingling - Integumentary Integumentary IM: no erythema, no new lesions, no non-healing lesions, no rash - Neurological Neurological ROS: abnormal gait (chronic), frequent falls, no dizziness (unsure) , no focal weakness, no headache(s), no numbness, no tingling, no weakness - Endocrine Endocrine IM: no polydipsia, no polyuria - Hematologic/Lymphatic Hematologic/Lymphatic: no easy bleeding, no easy bruising - Allergic/Immunologic Allergic/Immunologic: no tongue swelling, no throat swelling - Constitutional Vitals: Temp Pulse Resp BP Pulse Ox 99.7 F H 77 18 135/61 94 01/18/18 00:20 01/18/18 00:20 01/18/18 00:20 01/18/18 00:20 01/18/18 00:25 General appearance: Present: disheveled, A&O X 3, no acute distress Exam: Patient is alert and oriented 3 but it takes her a excessive amounts time to answer questions. She is a poor historian and cannot elaborate on many of her complaints. - Head Head exam: Present: atraumatic, normal inspection, normocephalic - Eye Eye exam: Present: EOMI, PERRL - ENT ENT exam: Present: mucous membranes moist, normal oropharynx Additional comments: no oral lesions - Neck Neck exam general surgery: Present: full ROM, tenderness (mild right posterior tenderness, patient reports this is chronic), supple. Absent: nuchal rigidity - Respiratory Respiratory exam: Present: CTAB. Absent: rales, respiratory distress, rhonchi, wheezes, tachypnea - Cardiovascular Cardiovascular exam: Present: RRR, +S1, +S2, systolic murmur (2/6). Absent: diastolic murmur, gallop, irregular rhythm, rubs, tachycardia - GI/Abdominal GI/Abdominal exam: Present: normal bowel sounds, soft, no peritoneal signs. Absent: distended, hepatomegaly, tenderness - Extremities Exam Extremities exam: Present: warm, radial pulses palpable and symmetrical. Absent : pedal edema, tenderness - Neurological Exam Neurological exam: Present: alert, CN II-XII intact, oriented X3 (but somewhat confused), no focal deficits, strengths equal and symetr throughout. Absent: pronater drift, facial droop, speech deficit Additional comments: No muscle rigidity or cogwheel rigidity noted. - Psychiatric Psychiatric exam: Present: flat affect - Skin Skin exam: Present: dry, intact, warm. Absent: erythema, rash Additional comments: No wounds noted including no sacral wounds. Eccymosis noted to left flank Internal Med - H&P Results - Labs CBC & Chem 7: 01/17/18 19:55 01/17/18 19:55 - Assessment and plan (1) Fall Current Visit: No Status: Acute Assessment and plan: She reports fall at home. She is unable to provide a complete history of the events that caused her fall. No family at bedside. Unclear if this is mechanical or a syncopal event. Patient seems to remember the events around the fall somewhat to do not feel this is syncopal and that was not reported by family and emergency department. C-spine CT and head CT were negative. Qualifiers: Encounter type: initial encounter Qualified Code(s): W19.XXXA - Unspecified fall, initial encounter (2) Fever Current Visit: No Status: Acute Assessment and plan: Etiology unclear. Patient is a poor historian so obtaining a complete and accurate history is difficult. No clear infectious source with negative UA and chest x-ray that appears to be more likely pulmonary vascular congestion the pneumonia however it is a poor portable film. [employer] infection is also a concern. Given the patient's mental status but is unclear what her baseline is. We will obtain 2 view chest x-ray for better evaluation of possible pneumonia. Blood cultures have been drawn. Patient does report chronic cough and chronic diarrhea so unclear if this is acute but will check respiratory infection panel GI panel. We will treat with broad-spectrum antibiotics including vancomycin, Rocephin, Flagyl which should cover pulmonary sources, intra-abdominal sources, aspiration pneumonia, as well as AUTOMATION [employer]CH[employer] infection. Will also start acyclovir for possible viral encephalitis. Patient may require LP however given her hospice status and ER documentation stating that the family only wants supportive measures it is unclear if she will be willing to go through this. We will need to discuss with family before proceeding as at this point I do not feel the patient can give consent. Tylenol rectally when necessary for fever. Other noninfectious sources of fever also considered. Patient is noted to be on several serotonergic medications so serotonin syndrome is also considered however she does not have any clonus, agitation, or diaphoresis. Neuroleptic malignant syndrome was also considered however this is felt to be less likely as the patient does not have any rigidity and CK is normal. Because of this we will hold home medications at this time. Qualifiers: Fever type: unspecified Qualified Code(s): R50.9 - Fever, unspecified (3) SIRS (systemic inflammatory response syndrome) Current Visit: Yes Status: Acute Assessment and plan: Patient has 2 out of 4 surgery criteria with fever and heart rate greater than 90, however no clear source of infection. Blood cultures have been drawn, lactic acid normal. Plan as above. (4) Parkinsons disease Current Visit: Yes Status: Acute Assessment and plan: Patient reports history of Parkinson's disease and this is why she is on hospice. She is unable to elaborate on her diagnosis but does state that she is on carbidopa/levodopa for this. No rigidity noted on exam and patient has occasional twitches but no resting tremor noted. Given her altered mental status we will make her nothing by mouth and have speech evaluate her before allowing her to eat as aspiration is also concern. (5) Hospice care patient Current Visit: No Status: Chronic Assessment and plan: Patient reports she is currently on hospice for Parkinson's with [facility]. Per ER documentation family states that she is a DNR and wants supportive care only however we do not have any documentation regarding her CODE STATUS and there is no family at bedside. We are attempting to contact her hospice agency to clarify further goals of care and CODE STATUS. Will discuss with patient and family before proceeding with any invasive procedures as they did request supportive measures only. - Time Spent With Patient Total time spent is greater than 50% in coordination of care (as documented) at patient's floor/unit and/or counseling patient:
[2018-01-18] MEDS ORDERED: Acetaminophen 650 MG RECTAL SUPP RC PRN (01:33)
[2018-01-18 05:17] LABS: Basophils % 0.1 %; Eosinophils % 0.2 %; Hemoglobin 9.4 g/dL (11.5-15.4); Immature Granulocytes % 0.3 % (0-4); Lymphocytes # 0.8 K/mcL (0.6-4.6); Lymphocytes % 6.6 %; Mean Corpuscular HGB Conc 31.3 g/dL (31.6-35.5); Mean Corpuscular Volume 86.2 fL (83.0-100.0); Mean Platelet Volume 11.6 fL (9.4-12.4); Monocytes # 0.8 K/mcL (0.0-1.3); Monocytes % 6.9 %; Platelet Count 105 K/mcL (140-400); Red Blood Count 3.48 M/mcL (3.82-4.97); Red Cell Distribution Width 14.6 % (11.5-14.5); Segmented Neutrophils % 85.9 %
[2018-01-18 05:37] LABS: Adenovirus Not Detected (Not Detect); Bordetella Pertussis Not Detected (Not Detect); Chlamydophila pneumoniae Not Detected (Not Detect); Coronavirus 229E Not Detected (Not Detect); Coronavirus HKU1 Not Detected (Not Detect); Coronavirus NL63 Not Detected (Not Detect); Coronavirus OC43 Not Detected (Not Detect); Human Metapneumovirus Not Detected (Not Detect); Human Rhinovirus/Enterovirus Not Detected (Not Detect); Influenza A Subtype 2009 H1 Not Detected (Not Detect); Influenza A Untypeable Not Detected (Not Detect); Influenza B Not Detected (Not Detect); Mycoplasma pneumoniae Not Detected (Not Detect); Parainfluenza Virus 1 Not Detected (Not Detect); Parainfluenza Virus 2 Not Detected (Not Detect); Parainfluenza Virus 3 Not Detected (Not Detect); Parainfluenza Virus 4 Not Detected (Not Detect); Respiratory Syncytial Virus Not Detected (Not Detect)
[2018-01-18 05:41] LABS: BUN/Creatinine Ratio 22 (6-26); Blood Urea Nitrogen 22 mg/dL (8-23); Calcium 8.7 mg/dL (8.6-10.3); Carbon Dioxide 27 mEq/L (23-29); Chloride 103 mEq/L (98-107); Glucose 96 mg/dL (70-105); Magnesium 1.6 mg/dL (1.6-2.6); Osmolality,Calculated 287 (280-300); Potassium 3.8 mEq/L (3.5-5.1); Sodium 137 mEq/L (136-145); eGFR For Non-African Americans 54 (> 60)
[2018-01-18] MEDS: Acyclovir 500 MG in D5% in Water 250 ML IVPB SCH ×2 (06:19→17:20)
[2018-01-18] MEDS ORDERED: Acyclovir 500 MG in D5% in Water 250 ML IVPB SCH (08:00)
[2018-01-18] MEDS: MetroNIDAZOLE 500 MG/100 ML 500 MG/100 ML BAG IVPB SCH ×2 (10:26→16:16)
[2018-01-18] MEDS: cefTRIAXone 2,000 MG in Water for inj. (sterile) 20 ML 20 ML IVPB SCH (10:27)
--- NOTE | 2018-01-18 13:04 | Internal Med Progress Note ---
Hospitalist Progress Note - Encounter Date of Encounter: 01/18/18 Time of Encounter: 10:05 - Subjective Interval History: Patient was seen and assessed at bedside at 10:05 AM. Patient is alert, awake, hard of hearing. Patient was oriented only to her address, the president, and the year. She was not sure of the month, day of the week, or where she was. Patient reports that she is on hospice due to Parkinson's disease, states that they come help her 3 times a week, she also had a passport at home 3 times each week on alternating days. Patient states that she feels okay, she is tired. She denies headache, dizziness, chest pain, nausea, vomiting, diarrhea, no abdominal pain. I spoke with [facility], verbal verification that pt is DNR-CCA. Waiting on faxed paperwork. - Exam Vitals: Temp Pulse Resp BP Pulse Ox 98.0 F 69 17 153/68 93 01/18/18 11:05 01/18/18 11:05 01/18/18 11:05 01/18/18 11:05 01/18/18 11:05 Exam: Patient is alert and oriented 3 but it takes her a excessive amounts time to answer questions. She is a poor historian and cannot elaborate on many of her complaints. General: Pt resting quietly on bed, no distress. She is hard of hearing. Skin: pwd, no rashes, lesions, redness, no heel, tach, coccyx wounds noted. Neurological: Pt is alert and awake, oriented x 3, Speech is clear, PERRLA, EOMI , no nystagmus, strength equal x 4 extremities HEENT: mucous mumbranes moist, no conjuctival pallor Neck: supple, no tracheal deviation, no lymphadenopathy, tenderness, no thyromegaly Heart: S1S2 heard without gallops, clicks, murmurs, no bradycardia or tachycardia, pt has no peripheral edema, pedal and radial pulses palpable bilaterally. Lungs: clear throughout without wheezing, rales, or ronchi, respirations are unlabored Abdomen: soft and non tender with bowel sound present, no hepatomegaly. Psych: Normal affect with good eye contact - Assessment and Plan (1) Fall Current Visit: Yes Status: Acute Assessment and Plan: She reports fall at home. She is unable to provide a complete history of the events that caused her fall. No family at bedside. Unclear if this is mechanical or a syncopal event. Patient seems to remember the events around the fall somewhat to do not feel this is syncopal and that was not reported by family and emergency department. C-spine CT and head CT were negative. 01/18- Pt reports that she does not know what caused the fall or why she fell. Continue to implement fall precautions and monitor for safety. (2) Fever Current Visit: Yes Status: Acute Assessment and Plan: Etiology unclear. Patient is a poor historian so obtaining a complete and accurate history is difficult. No clear infectious source with negative UA and chest x-ray that appears to be more likely pulmonary vascular congestion the pneumonia however it is a poor portable film. SOD STRIPPER infection is also a concern. Given the patient's mental status but is unclear what her baseline is. We will obtain 2 view chest x-ray for better evaluation of possible pneumonia. Blood cultures have been drawn. Patient does report chronic cough and chronic diarrhea so unclear if this is acute but will check respiratory infection panel GI panel. We will treat with broad-spectrum antibiotics including vancomycin, Rocephin, Flagyl which should cover pulmonary sources, intra-abdominal sources, aspiration pneumonia, as well as SOD STRIPPER infection. Will also start acyclovir for possible viral encephalitis. Patient may require LP however given her hospice status and ER documentation stating that the family only wants supportive measures it is unclear if she will be willing to go through this. We will need to discuss with family before proceeding as at this point I do not feel the patient can give consent. Tylenol rectally when necessary for fever. Other noninfectious sources of fever also considered. Patient is noted to be on several serotonergic medications so serotonin syndrome is also considered however she does not have any clonus, agitation, or diaphoresis. Neuroleptic malignant syndrome was also considered however this is felt to be less likely as the patient does not have any rigidity and CK is normal. Because of this we will hold home medications at this time. 01/18- Pt afebrile this a.m. 101.3. Etiology remains unclear. Repeat chest x-ray shows improved pulmonary vascular congestion, no acute process. Blood cultures are drawn and pending, respiratory infectious panel is negative, GI panel was cancelled after pt had a formed stool. CT abdomen and pelvis unremarkable, stable 7 mm solid nodule in the left lung base. Some noted on CAT scan were scattered, subcentimeter retroperitoneal lymph nodes, largest measuring up to 9 mm in short axis on the eighth order capable region, mild periportal adenopathy. In admission note, serotonin syndrome is considered, though patient still does not have clonus, agitation, diaphoresis, tachycardia. Continue to treat with vancomycin, Rocephin, and Flagyl which would cover pulmonary, intra-abdominal, aspiration pneumonia as well as a SOD STRIPPER infection. Patient was also started on acyclovir for possible viral encephalitis. Is also mentioned in the admission note the patient may require an LP to look for SOD STRIPPER infection, however patient is a DNR CCA per hospice, we would need to consult with family regarding their wishes and patient's wish for LP. I spoke with pt's , Valerio, today by phone and he will discuss LP with pt and notify nursing staff. (3) Parkinsons disease Current Visit: Yes Status: Acute Assessment and Plan: History of Parkinson's. Pt is on Hospice. Continue home dose of Carbidopa/Levodopa. Speech therapy has evaluated pt and recommend regular textures and thin liquids Monitor for safety and falls. (4) Hospice care patient Current Visit: Yes Status: Chronic Assessment and Plan: Patient reports she is currently on hospice for Parkinson's with [facility]. Per ER documentation family states that she is a DNR and wants supportive care only however we do not have any documentation regarding her CODE STATUS and there is no family at bedside again today. [facility] states that pt is DNR-CCA and were to fax copy of paperwork to us, however, later called back and stated that they don't have a copy, the family does. Primary RN to contact , Valerio, to bring paperwork when he comes. AT this time, code status remains unclear. (5) SIRS (systemic inflammatory response syndrome) Current Visit: Yes Status: Acute Assessment and Plan: Patient has 2 out of 4 SIRS criteria with fever this a.m. and leukocytosis, however no clear source of infection. Blood cultures have been drawn, lactic acid normal. Plan as above. - Time Spent with Patient Total time spent is greater than 50% in coordination of care (as documented) at patient's floor/unit and/or counseling patient: less than 15 minutes Plan of Care Discussed with: patient Internal Medicine: Result - Labs CBC & Chem 7: 01/18/18 03:35 01/18/18 03:35 Labs: Short CBC 01/18/18 Range/Units 03:35 WBC 11.7 H (4.3-11.1) K/mcL Hgb 9.4 L (11.5-15.4) g/dL Hct 30.0 L (35.3-44.9) % Plt Count 105 L (140-400) K/mcL Neutrophils # 10.0 H (1.6-8.9) K/mcL BMP 01/18/18 03:35 Sodium 137 Potassium 3.8 Chloride 103 Carbon Dioxide 27 BUN 22 Creatinine 1.01 Glucose 96 Calcium 8.7 - ABG Interpretation ABG results: PT/INR, D-dimer PT 12.6 Seconds (9.4-12.1) H 01/17/18 19:55 - Impressions Impressions Chest X-Ray 01/18/18 01:06 IMPRESSION: There is improvement of the lung findings since the previous study with improved vascular congestion. No acute pulmonary process. D/ / 01/18/2018 13:00:00 Brissa Martínez MD / Jessika Newman Interpreting Provider: Brissa Martínez MD Consult Discharge Plan - Plan Referrals: Marbin Aldrich Jr, MD [Primary Care Provider] - 01/22/18 10:30 am (1) Fall Qualifiers: Encounter type: initial encounter Qualified Code(s): W19.XXXA - Unspecified fall, initial encounter (2) Fever Qualifiers: Fever type: unspecified Qualified Code(s): R50.9 - Fever, unspecified
[2018-01-19] MEDS: cefTRIAXone 2,000 MG in Water for inj. (sterile) 20 ML 20 ML IVPB SCH ×3 (01:18→21:40)
[2018-01-19] MEDS: MetroNIDAZOLE 500 MG/100 ML 500 MG/100 ML BAG IVPB SCH ×3 (03:44→16:11)
[2018-01-19] MEDS: Acyclovir 500 MG in D5% in Water 250 ML IVPB SCH ×2 (06:27→17:00)
--- NOTE | 2018-01-19 09:05 | Internal Med Progress Note ---
Hospitalist Progress Note - Encounter Date of Encounter: 01/19/18 Time of Encounter: 09:05 - Subjective Interval History: Patient seen and examined at bedside. No fevers overnight A/o x2 follow simple commands. I did speak with patient Valerio Covarrubias concerning LP, he states that he and the patient have decided against LP at this time. we will cont with ATB and supportive care. - Exam Vitals: Temp Pulse Resp BP Pulse Ox 98.1 F 62 17 178/76 97 01/19/18 07:53 01/19/18 07:53 01/19/18 07:53 01/19/18 07:53 01/19/18 07:53 Exam: Patient is alert and oriented 3 but it takes her a excessive amounts time to answer questions. She is a poor historian and cannot elaborate on many of her complaints. General: Pt resting quietly on bed, no distress. She is hard of hearing. Skin: pwd, no rashes, lesions, redness, no heel, tach, coccyx wounds noted. Neurological: Pt is alert and awake, oriented x 3, Speech is clear, PERRLA, EOMI , no nystagmus, strength equal x 4 extremities Noted R sided facial droop HEENT: mucous mumbranes moist, no conjuctival pallor Neck: supple, no tracheal deviation, no lymphadenopathy, tenderness, no thyromegaly Heart: S1S2 heard without gallops, clicks, murmurs, no bradycardia or tachycardia, pt has no peripheral edema, pedal and radial pulses palpable bilaterally. Lungs: clear throughout without wheezing, rales, or ronchi, respirations are unlabored Abdomen: soft and non tender with bowel sound present, no hepatomegaly. Psych: Normal affect with good eye contact - Assessment and Plan (1) Fall Current Visit: Yes Status: Acute Assessment and Plan: She reports fall at home. She is unable to provide a complete history of the events that caused her fall. No family at bedside. Unclear if this is mechanical or a syncopal event. Patient seems to remember the events around the fall somewhat to do not feel this is syncopal and that was not reported by family and emergency department. C-spine CT and head CT were negative. 01/18- Pt reports that she does not know what caused the fall or why she fell. Continue to implement fall precautions and monitor for safety. 01/19 Patient repeatedly requesting to go home. (2) Fever Current Visit: Yes Status: Acute Assessment and Plan: Etiology unclear. Patient is a poor historian so obtaining a complete and accurate history is difficult. No clear infectious source with negative UA and chest x-ray that appears to be more likely pulmonary vascular congestion the pneumonia however it is a poor portable film. METALLURGICAL ENGINEERING TECHNICIAN infection is also a concern. Given the patient's mental status but is unclear what her baseline is. We will obtain 2 view chest x-ray for better evaluation of possible pneumonia. Blood cultures have been drawn. Patient does report chronic cough and chronic diarrhea so unclear if this is acute but will check respiratory infection panel GI panel. We will treat with broad-spectrum antibiotics including vancomycin, Rocephin, Flagyl which should cover pulmonary sources, intra-abdominal sources, aspiration pneumonia, as well as METALLURGICAL ENGINEERING TECHNICIAN infection. Will also start acyclovir for possible viral encephalitis. Patient may require LP however given her hospice status and ER documentation stating that the family only wants supportive measures it is unclear if she will be willing to go through this. We will need to discuss with family before proceeding as at this point I do not feel the patient can give consent. Tylenol rectally when necessary for fever. Other noninfectious sources of fever also considered. Patient is noted to be on several serotonergic medications so serotonin syndrome is also considered however she does not have any clonus, agitation, or diaphoresis. Neuroleptic malignant syndrome was also considered however this is felt to be less likely as the patient does not have any rigidity and CK is normal. Because of this we will hold home medications at this time. 01/18- Pt afebrile this a.m. 101.3. Etiology remains unclear. Repeat chest x-ray shows improved pulmonary vascular congestion, no acute process. Blood cultures are drawn and pending, respiratory infectious panel is negative, GI panel was cancelled after pt had a formed stool. CT abdomen and pelvis unremarkable, stable 7 mm solid nodule in the left lung base. Some noted on CAT scan were scattered, subcentimeter retroperitoneal lymph nodes, largest measuring up to 9 mm in short axis on the eighth order capable region, mild periportal adenopathy. In admission note, serotonin syndrome is considered, though patient still does not have clonus, agitation, diaphoresis, tachycardia. Continue to treat with vancomycin, Rocephin, and Flagyl which would cover pulmonary, intra-abdominal, aspiration pneumonia as well as a METALLURGICAL ENGINEERING TECHNICIAN infection. Patient was also started on acyclovir for possible viral encephalitis. Is also mentioned in the admission note the patient may require an LP to look for METALLURGICAL ENGINEERING TECHNICIAN infection, however patient is a DNR CCA per hospice, we would need to consult with family regarding their wishes and patient's wish for LP. I spoke with pt's , Valerio, today by phone and he will discuss LP with pt and notify nursing staff. 01/19 -patient is afebrile this a.m. blood cultures are been drawn and are pending. Respiratory infectious panel is negative we will recheck GI panel patient does have loose stool today. Testectomy did show some pulmonary congestion but no acute process continue treatment with vancomycin and Rocephin and Flagyl. I did speak with patient's who request LP not be completed (3) Parkinsons disease Current Visit: Yes Status: Acute Assessment and Plan: History of Parkinson's. Pt is on Hospice. Continue home dose of Carbidopa/Levodopa. Speech therapy has evaluated pt and recommend regular textures and thin liquids Monitor for safety and falls. (4) Hospice care patient Current Visit: Yes Status: Chronic Assessment and Plan: Patient reports she is currently on hospice for Parkinson's with [facility]. Per ER documentation family states that she is a DNR and wants supportive care only however we do not have any documentation regarding her CODE STATUS and there is no family at bedside again today. [facility] states that pt is DNR-CCA and were to fax copy of paperwork to us, however, later called back and stated that they don't have a copy, the family does. Primary RN to contact , Valerio, to bring paperwork when he comes. AT this time, code status remains unclear. 01/19 I did speak with the patient Vlaerio Covarrubias via telephone and did confirm that he would like for the patient to remain a DNR CCA (5) SIRS (systemic inflammatory response syndrome) Current Visit: Yes Status: Acute Assessment and Plan: Patient has 2 out of 4 SIRS criteria with fever and leukocytosis on presentation however no clear source of infection. Blood cultures have been drawn, pending lactic acid normal. Plan as above. (6) Altered mental status Current Visit: No Status: Acute (7) Fall Current Visit: Yes Status: Acute Assessment and Plan: presented with a fall - witnessed by - unsure of LOC - CT of head was negative She does have a hx of parkisons which could have contributed to fall she also presented with fever- unknown origin- infectious workup has been negative. Denies any CARMONA or vision changes- has chronic neck pain - declined LP noted this am she did have R sided facial droop- MRI head/brain w/o contrast ordered PT/OT consulted consut neurology as needed DVT Prophylaxis: SCD - Time Spent with Patient Total time spent is greater than 50% in coordination of care (as documented) at patient's floor/unit and/or counseling patient: Internal Medicine: Result - Labs CBC & Chem 7: 01/18/18 03:35 01/18/18 03:35 - ABG Interpretation ABG results: PT/INR, D-dimer PT 12.6 Seconds (9.4-12.1) H 01/17/18 19:55 - Impressions Impressions Chest X-Ray 01/18/18 01:06 IMPRESSION: There is improvement of the lung findings since the previous study with improved vascular congestion. No acute pulmonary process. D/ / 01/18/2018 13:00:00 Brissa Martínez MD / Jessika Newman Interpreting Provider: Brissa Martínez MD Videofluoroscopic Swallow 01/18/18 09:18 IMPRESSION: Swallowing mechanism grossly within normal limits without evidence of aspiration. Please see separate speech pathology report for full discussion of findings and recommendations. D/ / 01/18/2018 13:21:04 Adam Nolan MD / froylan Interpreting Provider: Adam Nolan MD Consult Discharge Plan - Plan Referrals: Marbin Aldrich Jr, MD [Primary Care Provider] - 01/22/18 10:30 am (1) Fall Qualifiers: Encounter type: initial encounter Qualified Code(s): W19.XXXA - Unspecified fall, initial encounter (2) Fever Qualifiers: Fever type: unspecified Qualified Code(s): R50.9 - Fever, unspecified (6) Altered mental status Qualifiers: Altered mental status type: disorientation Qualified Code(s): R41.0 - Disorientation, unspecified (7) Fall Qualifiers: Encounter type: initial encounter Qualified Code(s): W19.XXXA - Unspecified fall, initial encounter
[2018-01-19] MEDS: Carbidopa/Levodopa 25/100 TABLET PO SCH ×3 (12:42→21:40)
[2018-01-19 18:18] LABS: Adenovirus F 40/41 PCR Not detected (Not detect); Astrovirus PCR Not detected (Not detect); C.difficile Toxin A/B by PCR Not detected (Not detect); Campylobacter by PCR Not detected (Not detect); Cryptosporidium by PCR Not detected (Not detect); Cyclospora cayetanensis PCR Not detected (Not detect); E. coli O157 by PCR Not detected (Not detect); Entamoeba histolytica PCR Not detected (Not detect); Enteroaggregative E.coli(EAEC) DETECTED (Not detect); Enteropathogenic E.coli(EPEC) Not detected (Not detect); Enterotoxigenic E.coli (ETEC) Not detected (Not detect); Giardia lamblia PCR Not detected (Not detect); Norovirus GI/GII PCR Not detected (Not detect); Plesiomonas shigelloides PCR Not detected (Not detect); Rotavirus A PCR Not detected (Not detect); Salmonella PCR Not detected (Not detect); Sapovirus PCR Not detected (Not detect); Shig/EnteroinvasiveE coli EIEC Not detected (Not detect); Shigalike tox-prod E coli STEC Not detected (Not detect); Vibrio PCR Not detected (Not detect); Vibrio cholerae PCR Not detected (Not detect); Yersinia enterocolitica PCR Not detected (Not detect)
--- NOTE | 2018-01-19 18:21 | Electrocardiograph Report ---
[place] [id number] Test Date: 2018-01-17 Pat Name: Keli Covarrubias Department: [id number] Room: 3B12 Gender: F [employer] Vendor: : [id number] Requested By: Tanner Valenzuela Order Number: [id number] Reading MD: Ben Hall Measurements Intervals [place] Rate: 91 P: -2 MT: 169 QRS: 3 QRSD: 94 T: 62 QT: 371 QTc: 457 Interpretive Statements Sinus rhythm Electronically Signed On 01-19-2018 18:19:41 EDT by Ben Hall
[2018-01-19] MEDS ORDERED: amLODIPine 5 MG TABLET PO SCH (19:00)
[2018-01-20] MEDS: MetroNIDAZOLE 500 MG/100 ML 500 MG/100 ML BAG IVPB SCH ×2 (01:19→09:04)
[2018-01-20 05:03] LABS: BUN/Creatinine Ratio 25 (6-26); Blood Urea Nitrogen 18 mg/dL (8-23); Calcium 9.1 mg/dL (8.6-10.3); Carbon Dioxide 23 mEq/L (23-29); Chloride 105 mEq/L (98-107); Glucose 98 mg/dL (70-105); Osmolality,Calculated 290 (280-300); Sodium 139 mEq/L (136-145); eGFR For Non-African Americans > 60 (> 60)
[2018-01-20] MEDS: Acyclovir 500 MG in D5% in Water 250 ML IVPB SCH (05:19)
[2018-01-20 05:48] LABS: Basophils % 0.2 %; Eosinophils # 0.1 K/mcL (0.0-0.6); Eosinophils % 0.5 %; Hematocrit 32.6 % (35.3-44.9); Immature Granulocytes % 0.6 % (0-4); Lymphocytes # 1.1 K/mcL (0.6-4.6); Lymphocytes % 11.5 %; Mean Corpuscular HGB Conc 33.4 g/dL (31.6-35.5); Mean Corpuscular Hemoglobin 27.1 pg (28.0-33.3); Mean Corpuscular Volume 81.1 fL (83.0-100.0); Mean Platelet Volume 10.4 fL (9.4-12.4); Monocytes # 0.6 K/mcL (0.0-1.3); Monocytes % 6.8 %; Neutrophils # 7.5 K/mcL (1.6-8.9); Red Blood Count 4.02 M/mcL (3.82-4.97); Segmented Neutrophils % 80.4 %
[2018-01-20 06:27] LABS: Hemoglobin 10.9 g/dL (11.5-15.4); Platelet Count 166 K/mcL (140-400)
[2018-01-20] MEDS ORDERED: Aspirin 81 MG TAB.CHEW PO SCH (09:00)
[2018-01-20] MEDS: Carbidopa/Levodopa 25/100 TABLET PO SCH ×3 (09:04→17:21)
[2018-01-20] MEDS: cefTRIAXone 2,000 MG in Water for inj. (sterile) 20 ML 20 ML IVPB SCH (10:09)
[2018-01-20] MEDS ORDERED: Potassium Chloride 20 MEQ, Lidocaine 1% 2 ML in D5% in Water 250 ML IVPB ONE (11:09)
--- NOTE | 2018-01-20 14:48 | Discharge Summary ---
- NOTES TO OUTPATIENT PROVIDER Notes to Outpatient Provider: follow up with GI if loose stool continue after ATB completed Orders not resulted at time of discharge: Pending orders 01/21/18 04:00 CBC [Complete Blood Count] [HEME] AM 0400 Chem 7 [Basic Metabolic Panel] AM 0400 01/22/18 04:00 CBC [Complete Blood Count] [HEME] AM 0400 Chem 7 [Basic Metabolic Panel] AM 0400 Date of Encounter: 01/20/18 Time of Encounter: 14:44 - Discharge Diagnosis (1) Fall Priority: Primary Status: Acute Qualifiers: Encounter type: initial encounter Qualified Code(s): W19.XXXA - Unspecified fall, initial encounter (2) Fever Priority: Secondary Status: Acute Qualifiers: Fever type: unspecified Qualified Code(s): R50.9 - Fever, unspecified (3) Parkinsons disease Priority: Secondary Status: Acute (4) Hospice care patient Priority: Secondary Status: Chronic (5) SIRS (systemic inflammatory response syndrome) Priority: Secondary Status: Acute (6) Altered mental status Priority: Secondary Status: Acute Qualifiers: Altered mental status type: disorientation Qualified Code(s): R41.0 - Disorientation, unspecified (7) Fall Priority: Primary Status: Acute Qualifiers: Encounter type: initial encounter Qualified Code(s): W19.XXXA - Unspecified fall, initial encounter Hospital course: Ms. Covarrubias is a 67 year old female past medical history of hypertension and Parkinson's disease currently under hospice care for Parkinson's disease. Patient presented to the emergency department after experiencing a fall upon presentation she was found to have a temperature of 103. She denies any headaches she does have chronic neck pain denies any vision changes or upper respiratory symptoms symptoms. She did have some mild epigastric pain and has had some loose stool as well as some emesis. She states that the distal with something is chronic. She is unable to ambulate and she is in a wheelchair. Lab work did not reveal any leukocytosis head CT and cervical spine was negative chest x-ray with some vascular congestion she underwent a modified barium swallow which was within normal limits without evidence of aspiration. 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 Urinalysis was negative She was started on empiric treatment for possible GI and meningitis due to fever of unknown origin. Discussed with and patient concerning possible LP which they declined She continued to have some loose stool-GI panel did show Enteroaggregative Escherichia coli. I did curbside GI and infectious disease. Infectious disease recommending supportive treatment and to consult GI as needed GI recommending Cipro for 5 days and to follow-up as outpatient if diarrhea continues. Patient has remained afebrile with no leukocytosis mental state has been stable. Advised patient to follow-up with primary care provider since this provideror past and can adjust medications accordingly She is hemodynamically stable at this time. Discharge discussed with: patient - Time Spent with Patient Total time spent providing and/or coordinating discharge services: - Discharge Medications Prescriptions: Ciprofloxacin [Cipro] 500 mg PO BID #9 tablet Home Medications: Aspirin 81 mg PO DAILY 09/09/16 [History] BuPROPion SR (12 HR) [Wellbutrin SR] 150 mg PO BID 09/09/16 [History] Carbidopa/Levodopa 25/100 [Sinemet 25/100] 1 tab PO QID 09/09/16 [History] Gabapentin [Neurontin] 100 mg PO TID 09/09/16 [History] Gabapentin [Neurontin] 600 mg PO TID 09/09/16 [History] LORazepam [Ativan] 0.5 mg PO Q4H PRN 09/09/16 [History] Omeprazole [PriLOSEC] 40 mg PO DAILY 09/09/16 [History] Ondansetron HCl [Zofran] 4 mg PO Q6H PRN 09/09/16 [History] Prochlorperazine Maleate [Compazine] 10 mg PO Q8HR PRN 09/09/16 [History] Promethazine HCl 12.5 mg PO Q6H PRN 09/09/16 [History] Acetaminophen [Tylenol 650mg SUPP] 650 mg RC Q6HR 01/18/18 [History] Citalopram [CeleXA] 20 mg PO DAILY 01/18/18 [History] Dicyclomine [Bentyl] 10 mg PO TID 01/18/18 [History] Metoclopramide [Reglan] 5 mg PO QID 01/18/18 [History] OxyCODONE Immed Rel [Roxicodone 10 MG] 10 mg PO Q2H PRN 01/18/18 [History] OxyCODONE Immed Rel [Roxicodone 20 MG] 40 mg PO Q6H 01/18/18 [History] Sennosides [Senna] 8.6 mg PO DAILY PRN 01/18/18 [History] Ciprofloxacin [Cipro] 500 mg PO BID #9 tablet 01/20/18 [Rx] Allergies/Adverse Reactions: 3 Allergy/AdvReac Type Severity Reaction Status Date / Time No Known Allergies Allergy Verified 12/26/17 17:59 Date of admission: 01/17/18 23:04 Primary care physician: Marbin Aldrich Jr, MD Consults: 01/18/18 01:08 Consult to [employer] [CONS] Routine Reason for SW Consult: [facility] patient Discharging clinician: Madison Flannery Anticipated date of discharge: 01/20/18 - Constitutional Vitals: Temp Pulse Resp BP Pulse Ox 97.6 F 62 17 184/74 97 01/20/18 07:17 01/20/18 11:02 01/20/18 07:17 01/20/18 11:02 01/20/18 09:12 General appearance: Present: disheveled, A&O X 3, no acute distress Exam: Patient is alert and oriented 3, General: Pt resting quietly on bed, no distress. She is hard of hearing. Skin: pwd, no rashes, lesions, redness, no heel, tach, coccyx wounds noted. Neurological: Pt is alert and awake, oriented x 3, Speech is clear, PERRLA, EOMI , no nystagmus, strength equal x 4 extremities Noted R sided facial droop HEENT: mucous mumbranes moist, no conjuctival pallor Neck: supple, no tracheal deviation, no lymphadenopathy, tenderness, no thyromegaly Heart: S1S2 heard without gallops, clicks, murmurs, no bradycardia or tachycardia, pt has no peripheral edema, pedal and radial pulses palpable bilaterally. Lungs: clear throughout without wheezing, rales, or ronchi, respirations are unlabored Abdomen: soft and non tender with bowel sound present, no hepatomegaly. Psych: Normal affect with good eye contact - Head Head exam: Present: atraumatic, normocephalic - Eye Eye exam: Present: PERRL, conjuntiva pink, sclera anicteric Pupils: Present: PERRL - Neck Neck exam general surgery: Present: supple, trachea midline. Absent: lymphadenopathy - Respiratory Respiratory exam: Present: CTAB. Absent: accessory muscle use, rales, rhonchi, wheezes - Cardiovascular Cardiovascular exam: Present: RRR, +S1, +S2. Absent: diastolic murmur, gallop, rubs, systolic murmur - GI/Abdominal GI/Abdominal exam: Present: normal bowel sounds, soft, no peritoneal signs. Absent: distended, tenderness - Extremities Exam Extremities exam: Present: warm, radial pulses palpable and symmetrical. Absent : calf tenderness, cyanotic, pedal edema - Neurological Exam Neurological exam: Present: CN II-XII intact, oriented X3, no focal deficits. Absent: pronater drift, facial droop, speech deficit - Skin Skin exam: Present: dry, intact - Patient Status Disposition: Hospice - Home Condition: Fair Functional capacity at discharge: independent ambulation Overall status at discharge: patient is back to baseline - Discharge Instructions Instructions: Fall Prevention (DC) Follow Up With: Marbin Aldrich Jr, MD [Primary Care Provider] - 01/22/18 10:30 am Forms: ED Satisfaction Letter - Diet and Activity Activity: increase activity as tolerated Diet: advance to your usual diet
[2018-01-20] MEDS ORDERED: Gabapentin 300 MG CAPSULE PO SCH (15:00)
[2018-01-20 15:45] VITALS: BP 182/79
--- NOTE | 2018-01-20 16:36 | Physician Discharge Referral ---
Home Health/Hosp Referral Info Transfer to: Hospice Attending Provider: Madison Flannery Provider in Charge Post Discharge: PCP - Diagnosis (1) Fall Priority: Primary Status: Acute (2) Fever Priority: Primary Status: Acute (3) Parkinsons disease Priority: Secondary Status: Acute (4) Hospice care patient Priority: Secondary Status: Chronic (5) SIRS (systemic inflammatory response syndrome) Priority: Secondary Status: Acute (6) Altered mental status Priority: Secondary Status: Acute - Respiratory Orders Smoking Cessation: Smoking cessation has been advised. For more information, call the [place] Tobacco Quit Line at 8-650-XPNT-NOW. - Diet/Nutrition Diet/Nutrition Orders: Regular - Activity Activity Orders: Up ad akbar - Services Needed Following services are medically necessary services: Nursing - Transfer Medications Prescriptions: Ciprofloxacin [Cipro] 500 mg PO BID #9 tablet Home Medications: Aspirin 81 mg PO DAILY 09/09/16 [History] BuPROPion SR (12 HR) [Wellbutrin SR] 150 mg PO BID 09/09/16 [History] Carbidopa/Levodopa 25/100 [Sinemet 25/100] 1 tab PO QID 09/09/16 [History] Gabapentin [Neurontin] 100 mg PO TID 09/09/16 [History] Gabapentin [Neurontin] 600 mg PO TID 09/09/16 [History] LORazepam [Ativan] 0.5 mg PO Q4H PRN 09/09/16 [History] Omeprazole [PriLOSEC] 40 mg PO DAILY 09/09/16 [History] Ondansetron HCl [Zofran] 4 mg PO Q6H PRN 09/09/16 [History] Prochlorperazine Maleate [Compazine] 10 mg PO Q8HR PRN 09/09/16 [History] Promethazine HCl 12.5 mg PO Q6H PRN 09/09/16 [History] Acetaminophen [Tylenol 650mg SUPP] 650 mg RC Q6HR 01/18/18 [History] Citalopram [CeleXA] 20 mg PO DAILY 01/18/18 [History] Dicyclomine [Bentyl] 10 mg PO TID 01/18/18 [History] Metoclopramide [Reglan] 5 mg PO QID 01/18/18 [History] OxyCODONE Immed Rel [Roxicodone 10 MG] 10 mg PO Q2H PRN 01/18/18 [History] OxyCODONE Immed Rel [Roxicodone 20 MG] 40 mg PO Q6H 01/18/18 [History] Sennosides [Senna] 8.6 mg PO DAILY PRN 01/18/18 [History] Ciprofloxacin [Cipro] 500 mg PO BID #9 tablet 01/20/18 [Rx] Allergies/Adverse Reactions: 3 Allergy/AdvReac Type Severity Reaction Status Date / Time No Known Allergies Allergy Verified 12/26/17 17:59 Certification: Further, I certify that my clinical findings support that this patient is homebound (i.e. absences from home require considerable and taxing effort and are for medical reasons or restorationist services or infrequently or short duration when for other reasons) because: Homebound Reason: Leaving home requires considerable and taxing effort due to condition Attestation: My signature below is to certify that this patient is under my care and that I, or nurse practitioner, or a physician's clinical medical assistant working with me, has a face-to -face encounter with this patient.
[2018-01-20] MEDS ORDERED: Aminoglycoside Consult 1 EACH MC ONE (23:05)
== END 2018-01-20 17:59 | disposition hospice, home (50) ==
LOC: 3BNU 19:44 → EMEROOARM 19:44 → 3BNU 23:42
PROVIDERS: ADMIT Pediatrics; ATTEND Pediatrics